=== PATIENT | male | born 1945 | race Caucasian/White ===

== ENCOUNTER 2019-03-02 14:58 | Emergency (ER) | payer OTHER ==
[~2019-03-02] VITALS: Ht 182.9 cm; Wt 113.4 kg
[~2019-03-02 14:58] MED LIST: ASPIR 8181 MG PO; ASPIRIN325 PO; AVAPRO300 MG PO; BACTRIM DS TAB1 EACH PO; BENICAR20 MG PO; BYSTOLIC10 MG PO; COLACE100 MG PO; EFFIENT10 MG PO; ENDOCET 7.5-321 EACH PO; FISH OIL 1,001000 M2 PO; GLUCOPHAGE500 MG PO; GLUCOTROL10 MG PO; HYDROCHLOROTHIA25 M1 PO; LEVAQUIN 500 M500 M2 PO; LEVOXYL50 MCG PO; LEVOXYL75 MCG PO; LIPITOR80 MG PO; LOPRESSOR25 PO; PERCOCET PO; PLAVIX 75 MG TA75 M1 PO; PRADAXA150 MG PO; VANCOMYCIN HCL1 GM IV; ZOCOR 20 MG TAB20 M1 PO
[2019-03-02] MEDS ORDERED: KEFLEX500 M1 PO (17:20)
[2019-03-02 17:33] VITALS: BP 129/60
== END 2019-03-02 17:34 | disposition home or self-care (01) ==
LOC: ER 14:58
DX: S80.12XA Contusion of left lower leg, initial encounter (principal); L03.116 Cellulitis of left lower limb; I10 Essential (primary) hypertension; I48.91 Unspecified atrial fibrillation; E78.00 Pure hypercholesterolemia, unspecified; E11.9 Type 2 diabetes mellitus without complications; E03.9 Hypothyroidism, unspecified; G47.30 Sleep apnea, unspecified; Z95.5 Presence of coronary angioplasty implant and graft; W01.198A Fall on same level from slipping, tripping and stumbling with subsequent striking against other object, initial encounter; Y93.89 Activity, other specified; Y92.89 Other specified places as the place of occurrence of the external cause; Y99.8 Other external cause status

== ENCOUNTER → 2019-07-19 | Outpatient (CLI) | payer OTHER ==
[~2019-07-19] MED LIST changes: +FLOMAX0.4 MG PO; +KEFLEX500 M1 PO; +NORCO 5-325 TA1 EAC2 PO; +TORADOL 10 MG T10 MG PO
== END ==
LOC: SJCVC 13:21
PROVIDERS: ATTEND Internal Medicine Cardiovascular Disease
DX: I48.91 Unspecified atrial fibrillation (principal); I25.10 Atherosclerotic heart disease of native coronary artery without angina pectoris; I10 Essential (primary) hypertension; I73.9 Peripheral vascular disease, unspecified; E78.00 Pure hypercholesterolemia, unspecified; E11.9 Type 2 diabetes mellitus without complications; Z79.899 Other long term (current) drug therapy

== ENCOUNTER 2019-09-13 04:16 | Emergency (ER) | payer OTHER | END 2019-09-13 07:39 | disposition home or self-care (01) | LOC: ER 04:16 | DX: N13.2 Hydronephrosis with renal and ureteral calculous obstruction (principal); I25.10 Atherosclerotic heart disease of native coronary artery without angina pectoris; E11.65 Type 2 diabetes mellitus with hyperglycemia; E11.22 Type 2 diabetes mellitus with diabetic chronic kidney disease; I12.9 Hypertensive chronic kidney disease with stage 1 through stage 4 chronic kidney disease, or unspecified chronic kidney disease; N18.9 Chronic kidney disease, unspecified; E03.9 Hypothyroidism, unspecified; E78.00 Pure hypercholesterolemia, unspecified; I48.91 Unspecified atrial fibrillation; I25.2 Old myocardial infarction; Z95.5 Presence of coronary angioplasty implant and graft; Z79.2 Long term (current) use of antibiotics; Z79.899 Other long term (current) drug therapy; Z79.82 Long term (current) use of aspirin ==

== ENCOUNTER → 2020-04-09 | Outpatient (CLI) | payer OTHER | LOC: SJCVCIMAG 08:39 | PROVIDERS: ATTEND Internal Medicine Cardiovascular Disease | DX: I08.0 Rheumatic disorders of both mitral and aortic valves (principal); I11.9 Hypertensive heart disease without heart failure; R94.31 Abnormal electrocardiogram [ECG] [EKG]; I25.10 Atherosclerotic heart disease of native coronary artery without angina pectoris; E11.9 Type 2 diabetes mellitus without complications; E78.00 Pure hypercholesterolemia, unspecified; I73.9 Peripheral vascular disease, unspecified; I77.9 Disorder of arteries and arterioles, unspecified; I48.91 Unspecified atrial fibrillation; D68.59 Other primary thrombophilia; I42.9 Cardiomyopathy, unspecified; Z86.16 Personal history of COVID-19; E78.5 Hyperlipidemia, unspecified; I25.2 Old myocardial infarction; Z98.890 Other specified postprocedural states; Z79.84 Long term (current) use of oral hypoglycemic drugs; Z79.82 Long term (current) use of aspirin; Z79.899 Other long term (current) drug therapy; Z82.49 Family history of ischemic heart disease and other diseases of the circulatory system ==

== ENCOUNTER → 2020-07-18 | Outpatient (CLI) | payer OTHER ==
[~2020-07-18] MED LIST changes: +ACETAMINOPHEN325 M1 PO; +CALTRATE-600 W1 EACH PO; +CARDIZEM CD 18180 M3 PO; +COZAAR 50 MG TA50 M1 PO; +DEMADEX20 MG PO; +FISH OIL 1,001000 M3 PO; +GLIPIZIDE XL10 MG PO; -GLUCOTROL10 MG PO; +HUMALOG100 UNIT/1 SUBQ; +HYDROCODON-ACE1 EAC7 PO; +JARDIANCE25 MG PO; -LEVOXYL75 MCG PO; +LEVOXYL88 MCG PO; +METOPROLOL SUCC50 MG PO; +PEPCID20 MG PO
== END ==
LOC: SJCVC 13:48 → SJCVCIMAG 13:48 → SJCVC 16:30
PROVIDERS: ATTEND Internal Medicine Cardiovascular Disease
DX: I48.91 Unspecified atrial fibrillation (principal); I27.20 Pulmonary hypertension, unspecified; I25.10 Atherosclerotic heart disease of native coronary artery without angina pectoris; I10 Essential (primary) hypertension; E78.00 Pure hypercholesterolemia, unspecified; E11.51 Type 2 diabetes mellitus with diabetic peripheral angiopathy without gangrene; I73.9 Peripheral vascular disease, unspecified; I65.29 Occlusion and stenosis of unspecified carotid artery; I42.9 Cardiomyopathy, unspecified; E78.5 Hyperlipidemia, unspecified; I25.2 Old myocardial infarction; Z79.82 Long term (current) use of aspirin; Z79.84 Long term (current) use of oral hypoglycemic drugs; Z79.899 Other long term (current) drug therapy; Z86.16 Personal history of COVID-19; Z82.49 Family history of ischemic heart disease and other diseases of the circulatory system

== ENCOUNTER 2020-08-04 06:51 | Inpatient (IN) | payer OTHER ==
[~2020-08-04] VITALS: Ht 182.9 cm; Wt 117.2 kg
[2020-08-04] VITALS (16 sets, daily range): BP systolic 101–142; BP diastolic 4–94
[~2020-08-04 06:51] MED LIST changes: -ACETAMINOPHEN325 M1 PO; -CALTRATE-600 W1 EACH PO; -CARDIZEM CD 18180 M3 PO; -COZAAR 50 MG TA50 M1 PO; -DEMADEX20 MG PO; -FISH OIL 1,001000 M3 PO; -HUMALOG100 UNIT/1 SUBQ; -HYDROCODON-ACE1 EAC7 PO; -JARDIANCE25 MG PO; -METOPROLOL SUCC50 MG PO; -PEPCID20 MG PO
[2020-08-04 07:25] LABS: HEMATOCRIT 47.2 % (42.0-52.0); HEMOGLOBIN 15.8 gm/dL (14.0-18.0); MCH 29.3 pg (26.0-34.0); MCHC 33.6 g/dL (28.0-37.0); MCV 87.2 fL (80.0-100.0); RBC 5.41 mil/uL (4.50-6.00); RDW 13.7 % (10.5-14.5); WBC 6.1 thou/uL (4.0-11.0)
[2020-08-04 07:34] LABS: CALCIUM 9.4 mg/dL (8.5-10.1); CREATININE 1.3 mg/dL (0.7-1.3); POTASSIUM 4.5 mmol/L (3.5-5.1)
[2020-08-04] MEDS ORDERED: FISH OIL 1,001000 M3 PO (07:40)
[2020-08-04] MEDS ORDERED: PRADAXA150 MG PO ×2 (07:41)
--- NOTE | 2020-08-04 07:49 | EKG ---
[facility] [place] [address] ELECTROCARDIOGRAM REPORT Name: LUIS ALBERTO ANNE Room #: REG [facility]#: [id number] Admission: 08/04/20 Attend Phys: Leonides Navas MD, Discharge: Date of : 47 Report #: [id number] [facility] Test Date: 2020-08-04 Test Time: 07:27:08 Pat Name: LUIS ALBERTO ANNE Department: Room: Gender: Workday Manager: SBULOW : 1945 Requested By: Leonides Navas Order Number: [id number] MD: Leo Ann Measurements Intervals [place] Rate: 66 P: MA: QRS: 37 QRSD: 86 T: 43 QT: 384 QTc: 403 Interpretive Statements Atrial fibrillation Low voltage, extremity and precordial leads Poor R wave progression Compared to ECG 09/03/2015 06:48:08 Heart rate has slowed Electronically Signed On 08-04-2020 7:49:38 CDT by Leo Ann [email or web address] <ELECTRONICALLY SIGNED> By: Leo Ann MD, [facility] 08/04/20 0749 D: [id number] 6 Leo Ann MD, FAC /EPI
[2020-08-04 11:24] LABS: ABSOLUTE NEUTROPHILS 4.5 thou/uL (1.4-8.2); BASOPHILS 0.8 % (0.0-2.0); EOSINOPHILS 1.9 % (0.0-3.0); HEMOGLOBIN 15.4 gm/dL (14.0-18.0); LYMPHOCYTES 18.8 % (24.0-44.0); MCH 29.5 pg (26.0-34.0); MCHC 33.5 g/dL (28.0-37.0); MONOCYTES 8.3 % (1.0-8.0); POLYS 70.2 % (36.0-66.0); RBC 5.22 mil/uL (4.50-6.00); RDW 13.7 % (10.5-14.5); WBC 6.5 thou/uL (4.0-11.0)
[2020-08-04 11:25] LABS: URINE BILIRUBIN NEGATIVE (Negative); URINE BLOOD NEGATIVE (Negative); URINE CLARITY CLEAR; URINE COLOR YELLOW; URINE GLUCOSE-RANDOM* 3+ (Negative); URINE KETONES TRACE (Negative); URINE LEUKOCYTES-REFLEX NEGATIVE (Negative); URINE NITRITE-REFLEX NEGATIVE (Negative); URINE PROTEIN (DIPSTICK) NEGATIVE (Negative); URINE UROBILINOGEN 0.2 E.U./dl (0.2-1.0)
[2020-08-04 11:39] LABS: APTT 29.6 Seconds (24.5-32.8); CALCIUM 8.9 mg/dL (8.5-10.1); CREATININE 1.2 mg/dL (0.7-1.3); INR 1.1; POTASSIUM 4.3 mmol/L (3.5-5.1); PROTIME 11.9 Seconds (10.5-12.1)
[2020-08-04 11:45] LABS: TOTAL BILIRUBIN 1.1 mg/dL (0.2-1.0); TOTAL PROTEIN 6.8 g/dL (6.4-8.2)
[2020-08-04 12:04] LABS: ALBUMIN 3.6 g/dL (3.4-5.0)
[2020-08-04 12:28] LABS: PLATELET COUNT 101 thou/uL (150-400)
--- NOTE | 2020-08-04 17:27 | CATHLAB ---
[facility] [place] [address] INVASIVE PROCEDURE REPORT Name: LUIS ALBERTO ANNE Room #: 216-P [facility] Gray M.RMelanie#: [id number] Admission: 08/04/20 Attend Phys: Leonides Navas MD, Discharge: Date of : 47 Report #: [id number] THIS REPORT FOR: cc: Raghav Hickman MD, Troy A. MD Mancuso, Gerald M. MD [facility] ~ APPROVED REPORT Study performed: 08/04/2020 07:33:51 Patient Details Patient Status: Out-Patient Room #: The patient is a 74 year-old male Event Personnel Leonides Navas Violent Crimes Detective, Shiva Reynaga RN RN, Kalani Scherer RT(R)() Geoffrey Epperson Roberta Monitor Procedures Performed Art Access - R femoral artery* Left Heart Cath w/or w/o Coronaries [id number] [facility] Hemostasis w/ Mynx 01757 Initial Mod Sed Same Phys/QHP Gr5y [id number] 73505 Mod Sed Same Phys/QHP Ea 122132 Procedure Narrative The Right Groin^ was infiltrated with 1% Lidocaine subcutaneous anesthesia. A PINNACLE 6FR Sheath #[id number] sheath was inserted into the RFA^. Coronary angiography was performed using coronary diagnostic catheters. The right coronary system was accessed and visualized with a JR4 catheter. The left coronary system was accessed and visualized with a JL4 catheter. The left ventricle was accessed and visualized with a PIGTAIL catheter. The patient tolerated the procedure well and there were no complications associated with the procedure. There was no hematoma. Intraoperative Conscious Sedation Fentanyl 50 mcg Versed 1 mg Fluoro Time: 5.70 minutes Dose: DAP 79423.90 cGycm2 Contrast Type and Amount: Visipaque 105 ml Hemodynamics The aortic pressure is 103/54 mmHg with a mean of 71 mmHg. The left ventricular pressure is 111/14 mmHg with a mean of mmHg. The left [facility] [address] [place] [address] INVASIVE PROCEDURE REPORT Name: DAYANALUIS ALBERTO Room #: 216-P [facility] IN M.R.#: [id number] Admission: 08/04/20 Attend Phys: Leonides Navas, Discharge: Date of : 47 Report #: [id number] ventricular end diastolic pressure is 26 mmHg. Conclusion #1. Left main with distal narrowing of 40 to 50% giving rise to an LAD and circumflex. #2 subtotal ostial LAD just off the left main prior to a previously placed stent which is preserved with minimal restenosis and then a mid vessel stenosis of 80% extensive proximal calcification is noted the distal half of the vessel fairly well-preserved. #3 circumflex OM nondominant with mild disease. Proximal calcification again noted #4 dominant right coronary with mild calcification mild disease and then a mid distal 80% eccentric lesion giving rise to PDA FLOWER which are preserved. #5 normal left jugular size with anterior apical wall leg EF 45% range. (Expect improvement with revascularization). #6 supravalvular aortogram revealing normal caliber ascending aorta with trivial aortic insufficiency. #7 selective bilateral renal angiography revealing left renal artery patent with mild disease in the right renal artery 30 to 40% ostial narrowing. Recommendations and plan: Continue aggressive risk factor modification. Patient will be admitted for revascularization. Due to extensive calcification in nature of disease best served with revascularization by bypass surgery. Pain-free upon transfer to CCU. <ELECTRONICALLY SIGNED> By: Leonides Navas MD, FACC 08/04/201726 26 26 Leonides Navas MD, FACC /INF
--- NOTE | 2020-08-04 20:02 | NUR ---
RECEIVED PT FROM DESIGN TECHNICIAN. ADMISSION COMPLETED. AT THE BEDSIDE. PT IS AXOX4, PLEASANT. DENIES PAIN. VSS, AFEBRILE, AFIB ON MONITOR. PT CARD CATH IN R GROIN, MYNX CLOSURE, C/D/I, NO HEMATOMA. PT COMPLETED BEDREST AND IS UP AD TAD. DR MICHEL CONSULTED. POC IS TO OBSERVE PT. CABG SCHEDULED 08/06/20. PT COMMUNICATED UNDERSTANDING FOR POC. LOW FALL PRECAUTIONS IN PLACE. PT IS DIABETIC; R FOOT HAS ALL TOES AMPUTATED, L FOOT HAS SMALL TOE AMPUTATED. PT HAS STEADY, BALANCED GAIT WITH NO ASSISTIVE DEVICES. NO CONCERNS AT THIS TIME.
[2020-08-04 23:06] LABS: GLYCOHEMOGLOBIN (HGB A1C) 8.1 % (4.8-5.6)
[2020-08-05 00:45] VITALS: BP 103/60
[2020-08-05 04:45] VITALS: BP 108/65
[2020-08-05 07:40] VITALS: BP 113/76
--- NOTE | 2020-08-05 07:59 | NUR ---
PATIENT CARES WERE ASSUMED AT SHIFT CHANGE. PATIENT WAS ASSESSED AND MEDS WERE PASSED. PATIENT HAD A VERY RESTFUL NIGHT. HE IS SLOTTED TO HAVE HEART SURGERY TOMORROW, ROUNDS WERE MADE AND THE BED WAS IN A LOW AND LOCKED POSITION.
[2020-08-05 11:50] VITALS: BP 127/63
--- NOTE | 2020-08-05 15:01 | HC ---
[facility] [place] [address] CONSULTATION Name: LUIS ALBERTO ANNE Room #: 216-P [facility] M..#: [id number] Admission: 08/04/20 Attend Phys: Leonides Navas MD, Discharge: Date of : 47 Report #: [id number] THIS REPORT FOR: cc: Raghav Hickman MD, Troy A. MD Forman, John M. MD ~ DOC #: [id number] Randell Quinones MD DATE OF SERVICE: 08/04/2020 We were asked by Dr. Navas to see the patient. HISTORY OF PRESENT ILLNESS: The patient is a 74-year-old with coronary artery disease. The patient presents with a history of coronary artery disease, having had LAD stent in 2010 and circumflex stent in 2014. Recently, the patient notes that he has been short of breath with activity. This occurs mostly when he walks or is on a bicycle. We note that a recent stress test was positive for ischemia and today, coronary angiogram demonstrates a high-grade proximal 99% left anterior descending stenosis with an 80% mid LAD lesion. Circumflex has more mild disease and right coronary has distal 80% stenosis. Left ventricular function is moderately reduced with an ejection fraction in 35-40% range. PAST HISTORY: Significant for diabetes mellitus and hypertension. The patient has had right transmetatarsal amputation. The patient also has had right carotid endarterectomy and right femoropopliteal bypass. We also note the patient has chronic atrial fibrillation and takes Pradaxa for this. The patient is treated for hypertension and hyperlipidemia. FAMILY HISTORY: Significant for heart attack in father and paternal grandfather. SOCIAL HISTORY: The patient is a never smoker. He quit alcohol 40 years ago. 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 ALLERGIES: None known. REVIEW OF SYSTEMS: GENERAL: No fever, no weight change. EYES: No vision change. HENT: No hearing problems. No sinus problems. RESPIRATORY: As mentioned, shortness of breath on exertion. No cough. CARDIAC: No angina, no palpitations. As mentioned, shortness of breath with exertion. GASTROINTESTINAL: No nausea, vomiting, blood in stools. [facility] [address] [place] [address] CONSULTATION Name: LUIS ALBERTO ANNE Room #: 216-P [facility]#: [id number] Admission: 08/04/20 Attend Phys: Leonides Navas MD, Discharge: Date of : 47 Report #: [id number] GENITOURINARY: No urgency, frequency, blood in urine, MUSCULOSKELETAL: Denies bone or joint pain. SKIN: Denies rash or infection. NEUROLOGIC: Denies motor or sensory dysfunction. ENDOCRINE: Denies goiter, no tremor. HEMATOLOGIC: Denies bruisability or bleeding. PHYSICAL EXAMINATION: GENERAL: The patient is lying in bed after cardiac catheterization. VITAL SIGNS: Pulse 80, atrial fibrillation; blood pressure 130/70. HEENT: No scleral icterus. No arcus. NECK: No mass, no bruit. CHEST: Clear to auscultation. HEART: Heart rhythm irregular, no murmur. ABDOMEN: Protuberant, soft. EXTREMITIES: We note right transmetatarsal amputation. There is 1+ edema in both extremities. Color is good with no cyanosis. NEUROLOGIC: No obvious motor or sensory dysfunction. MUSCULOSKELETAL: Other than the amputation, no obvious bone or joint asymmetry or deformity. SKIN: No rash or infection. PSYCHIATRIC: Shows insight into problem, oriented and appropriate. In general, the patient is an overweight mesomorph with a marlon complexion. ASSESSMENT AND PLAN: The patient has important coronary artery disease. I reviewed the findings of the arteriogram and discussed it in view of the patient's presentation. I have recommended coronary artery bypass surgery. Risks and details of surgery were discussed. Options and alternatives were reviewed. Risks include but are not limited to bleeding, infection, anesthesia risks, heart and lung problems, stroke and . The patient understands all of this and wishes to proceed. I also discussed the advisability of placing a clip on the left atrial appendage during surgery with chronic atrial fibrillation. The patient understands this and agrees. We will try to arrange surgery for Tuesday morning, 08/06/2020 and perform a preoperative testing in the interim. Thank you for the consult. MD DANIELA Henderson/NADEEM [address] [address] CONSULTATION Name: LUIS ALBERTO ANNE Room #: 216-P [facility] Gray M.R.#: [id number] Admission: 08/04/20 Attend Phys: Leonides Navas MD, Discharge: Date of : 47 Report #: [id number] <ELECTRONICALLY SIGNED> By: Randell Quinones MD 08/05/20 1501 0924 2101 Randell Quinones MD /nt
--- NOTE | 2020-08-05 15:11 | NUR ---
PT ADMITTED RELATED TO CAD, HTN, DM2, HYPERCHOLESTEROLEMIA, PERIPHERAL DSE. CM REVIEWED CHART AND SPOKE WITH CARE TEAM. CM MET WITH PT AND SPOUSE AT BEDSIDE THIS DAY. PT APPEARED TO BE A&O X4. CM ROLE INTRODUCED. PT INDICATED HE LIVES IN A HOUSE WITH HIS SPOUSE WITH NO STEPS TO ENTER AND NO STEPS INSIDE. 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 PT INDICATED NO DME. PT INDICATED HE PLANS TO RETURN HOME ONCE MEDICALLY STABLE. PT IS TO HAVE CABG TOMORROW. CM FOLLOWING REGARDING DC PLANNING.
[2020-08-05 15:35] VITALS: BP 126/76
--- NOTE | 2020-08-05 19:59 | NUR ---
PT IS SCHEDULED FOR CABG IN AM. CONSENT SIGNED AND ON CHART. SINCLAIR NOW SWABBED AND SENT TO LAB. PT HAS BEEN INSTRUCTED THAT HE IS GOING TO BE NPO AFTER MIDNIGHT. PT STATES NO QUESTIONS AT THIS TIME. REPORT GIVEN TO NIGHT RN AND PT IS AWARE HE WILL HAVE A SHOWER TONIGHT AND TOMORROW AM. PT HAS DENIED ANY CHEST PAIN ENTIRE SHIFT.
[2020-08-05 20:26] VITALS: BP 129/62
[2020-08-06] VITALS (15 sets, daily range): BP systolic 101–139; BP diastolic 42–80
--- NOTE | 2020-08-06 06:19 | NUR ---
SLEPT PART OF NOC WITH CPAP ON. UP AD TAD IN ROOM. PM AND AM SHOWER COMPLETED WITH DAVIDSON. DENIES COMPLAINTS OF PAIN THIS SHIFT. AWAITING PREOP TO COME GET HIM FOR [facility]. CONTINUE TO ASSES.
--- NOTE | 2020-08-06 06:40 | NUR ---
ON CART TO PREOP. HERE AND HAS PATIENTS CELL PHONE.
--- NOTE | 2020-08-06 07:22 | NUR ---
belongings taken to ICU.
[2020-08-06 13:25] LABS: HEMATOCRIT 34.1 % (42.0-52.0); MCH 29.5 pg (26.0-34.0); MCHC 33.4 g/dL (28.0-37.0); MCV 88.3 fL (80.0-100.0); RBC 3.86 mil/uL (4.50-6.00); RDW 13.3 % (10.5-14.5); WBC 16.7 thou/uL (4.0-11.0)
[2020-08-06 13:33] LABS: HEMOGLOBIN 11.4 gm/dL (14.0-18.0)
[2020-08-06 13:44] LABS: APTT 36.5 Seconds (24.5-32.8); PROTIME 19.8 Seconds (10.5-12.1)
[2020-08-06 13:47] LABS: INR 1.87
--- NOTE | 2020-08-06 14:05 | NUR ---
Nutrition: pt S/P CABG x 4. Consult received. RD will followup to determine education needs when out of ICU and closer to D/C.
[2020-08-06 14:29] LABS: POC BE -2 mmol/L (-2.0 to +3.0); POC CA IONIZED 4.8 mg/dL (4.5-5.3); POC GLUCOSE 159 mg/dL (70-99); POC HCO3 23.2 mmol/L (22.0-26.0); POC POTASSIUM 4.4 mmol/L (3.5-5.1); POC SODIUM 138 mmol/L (136-145); POC pCO2 37.1 mmHg (35.0-45.0); POC pH 7.404 (7.360-7.450)
[2020-08-06 14:29] LABS: POC BE -4 mmol/L (-2.0 to +3.0); POC CA IONIZED 4.8 mg/dL (4.5-5.3); POC GLUCOSE 211 mg/dL (70-99); POC HEMOGLOBIN 15.6 g/dL (14.0-18.0); POC POTASSIUM 4.9 mmol/L (3.5-5.1); POC SODIUM 138 mmol/L (136-145); POC pCO2 39.7 mmHg (35.0-45.0); POC pH 7.353 (7.360-7.450)
[2020-08-06 14:30] LABS: POC BE -5 mmol/L (-2.0 to +3.0); POC CA IONIZED 4.7 mg/dL (4.5-5.3); POC GLUCOSE 133 mg/dL (70-99); POC HCO3 20.3 mmol/L (22.0-26.0); POC HEMOGLOBIN 11.9 g/dL (14.0-18.0); POC POTASSIUM 3.8 mmol/L (3.5-5.1); POC SODIUM 142 mmol/L (136-145); POC pCO2 34.7 mmHg (35.0-45.0); POC pH 7.376 (7.360-7.450)
[2020-08-06 14:30] LABS: POC BE -4 mmol/L (-2.0 to +3.0); POC CA IONIZED 4.2 mg/dL (4.5-5.3); POC GLUCOSE 180 mg/dL (70-99); POC HCO3 20.6 mmol/L (22.0-26.0); POC HEMOGLOBIN 12.9 g/dL (14.0-18.0); POC SODIUM 137 mmol/L (136-145); POC pCO2 34.1 mmHg (35.0-45.0)
[2020-08-06 14:30] LABS: POC BE 0 mmol/L (-2.0 to +3.0); POC CA IONIZED 4.4 mg/dL (4.5-5.3); POC GLUCOSE 155 mg/dL (70-99); POC HCO3 24.5 mmol/L (22.0-26.0); POC HEMOGLOBIN 12.2 g/dL (14.0-18.0); POC SODIUM 141 mmol/L (136-145); POC pH 7.429 (7.360-7.450)
[2020-08-06 14:30] LABS: POC BE -4 mmol/L (-2.0 to +3.0); POC GLUCOSE 139 mg/dL (70-99); POC HCO3 20.9 mmol/L (22.0-26.0); POC HEMOGLOBIN 11.2 g/dL (14.0-18.0); POC POTASSIUM 3.7 mmol/L (3.5-5.1); POC SODIUM 141 mmol/L (136-145); POC pCO2 34.3 mmHg (35.0-45.0); POC pH 7.392 (7.360-7.450)
[2020-08-06 14:30] LABS: POC BE 0 mmol/L (-2.0 to +3.0); POC CA IONIZED 4.3 mg/dL (4.5-5.3); POC GLUCOSE 149 mg/dL (70-99); POC HCO3 24.1 mmol/L (22.0-26.0); POC HEMOGLOBIN 11.6 g/dL (14.0-18.0); POC POTASSIUM 4.1 mmol/L (3.5-5.1); POC SODIUM 141 mmol/L (136-145); POC pCO2 37.3 mmHg (35.0-45.0); POC pH 7.418 (7.360-7.450)
[2020-08-06 14:30] LABS: POC BE 0 mmol/L (-2.0 to +3.0); POC CA IONIZED 4.4 mg/dL (4.5-5.3); POC GLUCOSE 168 mg/dL (70-99); POC HCO3 24.7 mmol/L (22.0-26.0); POC HEMOGLOBIN 12.2 g/dL (14.0-18.0); POC POTASSIUM 4.1 mmol/L (3.5-5.1); POC SODIUM 140 mmol/L (136-145); POC pCO2 37.7 mmHg (35.0-45.0); POC pH 7.425 (7.360-7.450)
--- NOTE | 2020-08-06 14:50 | NUR ---
PATIENT TO ICU FROM OR. ALL STAFF PRESENT IN ROOM UPON PATIENTS ARRIVAL.
[2020-08-06 15:14] LABS: BE(vivo) -7.4 mmol/L (-2 to +3); PCO2 31.1 mmHg (35.0-45.0); PO2 139.6 mmHg (80.0-100.0); pH 7.355 (7.360-7.450); sO2 98.7 % (92.0-98.0)
--- NOTE | 2020-08-06 15:25 | NUR ---
1515- Dr. Quinones and Elbert here and ABThuy's reviewed with physician . Fio2 decreased to 50% per MD orders.
[2020-08-06 15:26] LABS: HEMATOCRIT 37.9 % (42.0-52.0); HEMOGLOBIN 12.5 gm/dL (14.0-18.0); MCH 29.3 pg (26.0-34.0); MCV 88.9 fL (80.0-100.0); RBC 4.27 mil/uL (4.50-6.00); RDW 13.5 % (10.5-14.5); WBC 15.4 thou/uL (4.0-11.0)
[2020-08-06 15:48] LABS: APTT 27.9 Seconds (24.5-32.8); INR 1.27; PROTIME 13.7 Seconds (10.5-12.1)
--- NOTE | 2020-08-06 15:50 | NUR ---
1550- Dr. Quinones here to check on status of patient. Patients coming back to room, nurse to give her security code and explain visiting hours.
[2020-08-06 15:56] LABS: CALCIUM 8.2 mg/dL (8.5-10.1); CREATININE 1.2 mg/dL (0.7-1.3); MAGNESIUM 2.4 mg/dL (1.8-2.4); POTASSIUM 4.4 mmol/L (3.5-5.1)
--- NOTE | 2020-08-06 16:34 | NUR ---
Pt is now in ICU s/p CABG today. Will follow along with his postop progress and await therapy recommendations for any dc planning needs. The pt is hoping to go home with outpt f/u at dc.
--- NOTE | 2020-08-06 17:42 | NUR ---
Patient progressing towards plan of care of extubation. He is awake and calm. Denies pain. Nurse to call ABG results to physician.
[2020-08-06 17:44] LABS: BE(vivo) -9.2 mmol/L (-2 to +3); HCO3 16.2 mmol/L (22.0-26.0); PCO2 33.9 mmHg (35.0-45.0); PO2 116.5 mmHg (80.0-100.0); pH 7.298 (7.360-7.450); sO2 97.9 % (92.0-98.0)
--- NOTE | 2020-08-06 17:55 | NUR ---
1755 Patient extubated per Physician orders. Will continue to monitor.
[2020-08-07] VITALS (33 sets, daily range): BP systolic 91–129; BP diastolic 40–66
[2020-08-07 04:40] LABS: HEMATOCRIT 33.9 % (42.0-52.0); HEMOGLOBIN 11.4 gm/dL (14.0-18.0); MCH 29.6 pg (26.0-34.0); MCHC 33.7 g/dL (28.0-37.0); MCV 87.9 fL (80.0-100.0); RBC 3.86 mil/uL (4.50-6.00); RDW 13.6 % (10.5-14.5)
[2020-08-07 04:52] LABS: CALCIUM 7.9 mg/dL (8.5-10.1); CREATININE 1.6 mg/dL (0.7-1.3); MAGNESIUM 2.2 mg/dL (1.8-2.4); POTASSIUM 4.2 mmol/L (3.5-5.1)
--- NOTE | 2020-08-07 07:15 | EKG ---
[place] [address] [facility] [place] [address] ELECTROCARDIOGRAM REPORT Name: LUIS ALBERTO ANNE Room #: 251-P [facility] IN M.R.#: [id number] Admission: 08/05/20 Attend Phys: Leonides Navas MD, Discharge: Date of : 46 Report #: [id number] [facility] Test Date: 2020-08-06 Test Time: 16:29:45 Pat Name: LUIS ALBERTO ANNE Department: Room: 251 Gender: M Visitor Services Assistant: MIREYA : 1945 Requested By: Gustavo Navarro Order Number: [id number] MD: Thomas Hurley Measurements Intervals [place] Rate: 78 P: 71 VA: 252 QRS: 92 QRSD: 86 T: QT: 458 QTc: 522 Interpretive Statements Sinus rhythm Prolonged VA interval Low voltage with right axis deviation Anteroseptal infarct, old Nonspecific T abnormalities, inferior leads Prolonged QT interval Compared to ECG 08/04/2020 07:27:08 First degree AV block now present Right-axis deviation now present T-wave abnormality now present Atrial fibrillation no longer present Poor R-wave progression no longer present Electronically Signed On 08-07-2020 7:15:23 CDT by Thomas Hurley [email or web address] <ELECTRONICALLY SIGNED> By: Thomas Hurley MD, [facility] 08/07/20 0715 1629 1629 Thomas Hurley MD, [facility] /EPI
--- NOTE | 2020-08-07 07:58 | EKG ---
[place] [address] [facility] [place] [address] ELECTROCARDIOGRAM REPORT Name: LUIS ALBERTO ANNE Room #: 251-P [facility] IN M.R.#: [id number] Admission: 08/05/20 Attend Phys: Leonides Navas MD, Discharge: Date of : 47 Report #: [id number] [facility] Test Date: 2020-08-07 Test Time: 07:16:08 Pat Name: LUIS ALBERTO ANNE Department: Room: 251 P Gender: M Veterinarian Epidemiologist: MIREYA : 1945 Requested By: Gustavo Navarro Order Number: [id number] MD: Leo Ann Measurements Intervals [place] Rate: 73 P: 65 NV: 219 QRS: 62 QRSD: 98 T: 38 QT: 423 QTc: 467 Interpretive Statements Sinus rhythm Borderline prolonged NV interval Low voltage Poor R wave progression Compared to ECG 08/06/2020 16:29:45 NV interval has shortened Prolonged QT interval no longer present Electronically Signed On 08-07-2020 7:57:46 CDT by Leo Ann [email or web address] <ELECTRONICALLY SIGNED> By: Leo Ann MD, [facility] 08/07/20 0757 5 5 Leo Ann MD, [facility] /EPI
[2020-08-07] MEDS ORDERED: JARDIANCE25 MG PO (10:34)
--- NOTE | 2020-08-07 13:16 | NUR ---
Chart review. s/p CABG x 4. Discussed with cardiac LANDSCAPE ARCHITECTURE PROFESSOR, no anticipated dc over the weekend. will cont following as needed for dc need. Therapy on hold.
[2020-08-08] VITALS (24 sets, daily range): BP systolic 101–136; BP diastolic 50–71
[2020-08-08 04:44] LABS: HEMOGLOBIN 11.6 gm/dL (14.0-18.0); MCH 29.7 pg (26.0-34.0); MCHC 34.2 g/dL (28.0-37.0); MCV 86.9 fL (80.0-100.0); RBC 3.92 mil/uL (4.50-6.00); RDW 13.7 % (10.5-14.5); WBC 9.3 thou/uL (4.0-11.0)
--- NOTE | 2020-08-08 05:15 | NUR ---
Patient slept on/off most of the shift. No complaints of pain except discomfort with repositioning. Patient has good strength and is able to assist in turning. Remains neuro intact. Heart rate and rhythm stable. Small 1st degree block and a BBB noted. Cardiac numbers continued to be WNL. Did call [place] for elevated SVR early in the shift. He stated to just watch the patient and leave the Dobutamine at 4 mcgs and not titrate overnight. Adequate oxygenation on 2L NC. Patient does good with coughing/deep breathing. Discussed slow intentional breathing with the patient as he gets paniced at times and feels like he cannot take a deep breath. Insulin gtt continues to be stable, checking BG every 2-3 hours. Average chest tube drainage. Adequate U/O. AM labs sent. Awaiting results. Patient is progressing towards goals. Patient did have an emesis at the beginning of shift. Zofran given q hours to prevent further N/V. See documentation on interventions for assessment details.
[2020-08-08 05:24] LABS: ALBUMIN 3.3 g/dL (3.4-5.0); CALCIUM 7.7 mg/dL (8.5-10.1); CREATININE 1.5 mg/dL (0.7-1.3); POTASSIUM 3.7 mmol/L (3.5-5.1); TOTAL BILIRUBIN 0.7 mg/dL (0.2-1.0); TOTAL PROTEIN 5.6 g/dL (6.4-8.2)
--- NOTE | 2020-08-08 13:14 | NUR ---
Assummed care of this patient at 0700 today. Patient's bed converted to chair position to allow adequate hemostatis and chest tube drainage. Dobutamine drip tappered at 0.5 mcg/hr until last hour and then decreased by 1 mcg. MAP is greater than 65 MMHG and urine output is greater than 40 ml/hr. Diet encouraged. States that he has adequate pain relief after pain meds give. Less nauseated today and anti nausea medications given as needed with relief
--- NOTE | 2020-08-08 15:27 | NUR ---
SW reviewed chart and spoke with hospitalist. Pt is POD#2 CABG x 4. No weekend discharge planned. Pt is on dobutamine gtt. Therapy services are working with pt. Pt may benefit from a 5N consult pending progress with therapy. [facility] is following to assist as needed with discharge planning.
--- NOTE | 2020-08-08 16:31 | NUR ---
PATIENT IS SLOWLY PROGRESSING. DOBUTAMINE TAPPERED OFF AT 1415, WITHIN 25 MINS CI NOTED TO BE IN THE 1.5 RANGE WITH SVR INCREASING. DOBUTAMINE RESTARTED AND CI UP TO 1.9 TO 2.0 RANGE ONCE REPOSITIONED IN THE BED. INSULIN DRIP AND FLUIDS DC'D AND DOBUTAMINE ONCE AGAIN IS BEING TAPPERED. WILL CONTINUE TO MONITOR.
--- NOTE | 2020-08-08 18:15 | NUR ---
PATIENT IS SLOWLY PROGRESSING TOWARDS OUTCOME GOALS IVF, SINGH, INSULIN AND DOBUTAMINE DC'D. MONITOR NSR. CI GREATER THAN 2 AND SVR 800'S TO 1000'S AFTER DOBUTAMINE WEANED OFF. MEAN ARTERIAL PRESSURE GREATER THAN 6 MMGH.
[2020-08-08 21:16] LABS: HEMATOCRIT 36.6 % (42.0-52.0); HEMOGLOBIN 12.2 gm/dL (14.0-18.0); MCH 29.1 pg (26.0-34.0); MCHC 33.3 g/dL (28.0-37.0); MCV 87.3 fL (80.0-100.0); RBC 4.19 mil/uL (4.50-6.00); RDW 13.7 % (10.5-14.5); WBC 11.1 thou/uL (4.0-11.0)
[2020-08-09] VITALS (24 sets, daily range): BP systolic 108–145; BP diastolic 51–78
--- NOTE | 2020-08-09 06:10 | NUR ---
Patient slept well through the night. Medicated for pain twice and nausea twice. Heart rate and rhythm stable. Blood pressure stable with MAP > 65. Adequate oxygenation on room air. Adequate urine output per urinal. Marginal chest tube drainage. No am labs ordered. Patient is progressing towards goals. See documenation on interventions for assessment details.
[2020-08-09 08:41] LABS: HEMATOCRIT 36.7 % (42.0-52.0); HEMOGLOBIN 12.4 gm/dL (14.0-18.0); MCH 29.6 pg (26.0-34.0); MCHC 33.8 g/dL (28.0-37.0); MCV 87.5 fL (80.0-100.0); RBC 4.19 mil/uL (4.50-6.00); RDW 13.4 % (10.5-14.5); WBC 10.1 thou/uL (4.0-11.0)
--- NOTE | 2020-08-09 09:45 | NUR ---
labs drawn, platelet count-77,000. pacing wire capped, pleural chest tube and mediastinal chest tube removal performed by ILIANA Terrell. pt up in chair with assistance of Edgar, physical therapist. all well tolerated. radial fuentes and non-invasive bp coordinate. pt pulling 1,000 on incentive spirometer. tolerating po, poor appetite. passing flatus. at bedside providing support. progressing.
[2020-08-09 09:49] LABS: CALCIUM 8.6 mg/dL (8.5-10.1); CREATININE 1.2 mg/dL (0.7-1.3); POTASSIUM 4.7 mmol/L (3.5-5.1)
--- NOTE | 2020-08-09 10:00 | NUR ---
when pt up to chair, left pct and left mediastinal chest tube site dripping serosanguinous blood. pressure held x 5 min. no further bleeding. ILIANA Terrell present, notified.
--- NOTE | 2020-08-09 14:20 | NUR ---
with activity L mct/L pct site restarted with dripping drainage. dressing reapplied.
--- NOTE | 2020-08-09 16:35 | NUR ---
pt rested for about 2 hrs while on his home cpap machine. Dr. Quinones present to see pt. continues to remain at bedside.
--- NOTE | 2020-08-09 17:58 | NUR ---
while consuming pm meal, pt coughed up moderate amount sputum. poor appetite. present all day providing support to pt. continuing to progress.
[2020-08-10] VITALS (16 sets, daily range): BP systolic 107–140; BP diastolic 57–84
[2020-08-10 04:21] LABS: ABSOLUTE NEUTROPHILS 5.3 thou/uL (1.4-8.2); BASOPHILS 0.5 % (0.0-2.0); EOSINOPHILS 3.2 % (0.0-3.0); HEMATOCRIT 35.5 % (42.0-52.0); HEMOGLOBIN 12.1 gm/dL (14.0-18.0); LYMPHOCYTES 13.3 % (24.0-44.0); MCH 29.7 pg (26.0-34.0); MCV 87.5 fL (80.0-100.0); MONOCYTES 12.1 % (1.0-8.0); PLATELET COUNT 94 thou/uL (150-400); POLYS 70.9 % (36.0-66.0); RBC 4.06 mil/uL (4.50-6.00); RDW 13.5 % (10.5-14.5); WBC 7.5 thou/uL (4.0-11.0)
[2020-08-10 04:38] LABS: ALBUMIN 2.8 g/dL (3.4-5.0); CALCIUM 8.5 mg/dL (8.5-10.1); CREATININE 1.1 mg/dL (0.7-1.3); POTASSIUM 4.1 mmol/L (3.5-5.1); TOTAL PROTEIN 5.7 g/dL (6.4-8.2)
--- NOTE | 2020-08-10 12:17 | NUR ---
pacing wire dc'd by ILIANA Terrell. pt spontaneously into afib 119-139. Dr. Hammer notified, cardizem bolus 10mg, then gtt 10mg/hr infusing with afib rate improved to 100-109. appropiately coughing up clear sputum. pt stating, "the coughing really tires me out". continues with poor appetite however he consumed slightly more. voiding adequate urine. present this am, updated on all cares. report given to LAZ Cook. pt up to wheelchair with one assist, then transported with groundwater monitoring technician to radiology for 2 view chest xray. following radiology, pt transferred to CCU #210 with his cpap machine and all his belongings. pt progressing.
--- NOTE | 2020-08-10 13:46 | EKG ---
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 Beveler: : 1945 Requested By: Gustavo Navarro Order Number: [id number] MD: Judd Hammer Measurements Intervals [place] Rate: 69 P: 50 GA: 225 QRS: 68 QRSD: 86 T: 24 QT: 404 QTc: 433 Interpretive Statements Sinus rhythm Prolonged GA interval Low voltage Poor R wave progression Minimal ST elevation, lateral leads Compared to ECG 08/07/2020 07:16:08 No significant changes Electronically Signed On 08-10-2020 13:46:43 CDT by Judd Hammer [email or web address] <ELECTRONICALLY SIGNED> By: Judd Hammer MD 08/10/20 1346 0 0 Judd Hammer MD /EPI
--- NOTE | 2020-08-10 13:49 | NUR ---
PT TRANSFERED FROM ER ABOUT 1300PM, PT IS A&OX4, PT IS ON ROOM AIR, PT IS CONTINUING DILTIAZEM IV DRIP AT 10MG/HR KEEP HR AT 90-100, PT'S VS ARE STABLE AT THIS TIME, PT'S STERNUM SURGICAL DRESSING IS INTACT, WOUND VAC IS WORKING WELL, PT DENIES PAIN AND SOB AT THIS TIME, PT GETS UP TO CHAIR WITH ASSIST AT THIS TIME, PT'S FAMLY STAY AT PT'S BEDSIDE .
--- NOTE | 2020-08-11 00:47 | NUR ---
ASSESSMENTS CHARTED, MEDS CHARTED GIVEN. PATIENT RESTING IN RECLINER AT START OF SHIFT. STATED HE HAD CALLED FOR CARE 4 TIMES AND HAD NO RESPONSE. PATIENT FEARFUL OF HIS SAFETY. REASSURED PATIENT THAT HE WILL BE RESPONDED TO APPROPRIATELY DURING THE NIGHT. PATIENT TOLIETED, THEN TO BED. ASSESSMENT AND MEDS GIVEN. PATIENT AT EASE IN BED. FALL PRECAUTIONS IN PLACE DURING SHIFT.
[2020-08-11 04:00] VITALS: BP 115/65
[2020-08-11 09:03] VITALS: BP 119/68
[2020-08-11 12:20] VITALS: BP 119/68
--- NOTE | 2020-08-11 15:41 | NUR ---
spoke with patient and at bedside, Discussed post acute care. 5N in process of eval. IF 5N accepting of patient, patient reports agreeable to 5N.
--- NOTE | 2020-08-11 16:46 | NUR ---
ASSESSMENT CHARTED - MEDS PER MAR - GIVEN HYDROCODONE X 2 DOSES WITH GOOD RELIEF. PT HAS SPENT MOST OF THE DAY UP IN THE CHAIR TODAY - KAYE WELL -SEEN BY CARDIAC REHAB - PT AND OCC THERAPY. WOUND VAC REMIANS INSITU AND DRESSINGS TO CHEST/ LEG AND CT -OPACER SITES REMAIN C/D/I. NO CO'S OF NAUSEA - TOLD DIET AND FLOUIDS. SEEN BY REHAB SAND BLASTER THIS AFTERNOON. INTO VISIT. ACCUCHECKS CHARTED - COVERED PER SSI. NO CO'S AT THE PRESENT TIME.
[2020-08-11 16:48] VITALS: BP 124/62
[2020-08-11 21:17] VITALS: BP 134/78
[2020-08-12 04:46] LABS: HEMATOCRIT 36.9 % (42.0-52.0); HEMOGLOBIN 12.6 gm/dL (14.0-18.0); MCH 29.7 pg (26.0-34.0); MCV 87.2 fL (80.0-100.0); RBC 4.23 mil/uL (4.50-6.00); RDW 13.5 % (10.5-14.5)
[2020-08-12 05:28] VITALS: BP 114/67
--- NOTE | 2020-08-12 05:42 | NUR ---
ASSESSMENTS CHARTED, MEDS CHARTED GIVEN. PATIENT IN RECLINER AT START OF SHIFT. TRANSFERED TO BED WITH ASSIST X 1. PATIENT REQUESTED PAIN MEDS X 1 DURING SHIFT. PATIENTS CPAP USED DURING THE NIGHT. FALL PRECAUTIONS IN PLACE DURING SHIFT.
[2020-08-12 09:02] VITALS: BP 123/80
[2020-08-12 09:38] LABS: CALCIUM 8.7 mg/dL (8.5-10.1); CREATININE 1.1 mg/dL (0.7-1.3); MAGNESIUM 1.7 mg/dL (1.8-2.4); POTASSIUM 3.5 mmol/L (3.5-5.1)
[2020-08-12 12:42] VITALS: BP 122/67
--- NOTE | 2020-08-12 13:50 | NUR ---
Nutrition: pt S/P CABG x 4 with atrial appendage clip and seen due to LOS. Pt reports improving appetite over the past 48 hrs to 50-60% of meals and up to eating most of meals today. Wound vac in place to sternal wound. BM 08/10. Pt voiced no weight changes prior to admit. BG 130-175. Pt/ voice no diet related questions as they are familiar with heart healthy guidelines. Plan rehab transfer soon. Encourage adequate protein for wound healing. Low risk.
[2020-08-12 16:00] VITALS: BP 102/64
--- NOTE | 2020-08-12 18:24 | NUR ---
ASSESSMENT CHARTED - MEDS PER SHWETHA - KAYE DIET AND FLUIDS. UP TO THE CHAIR AMBUALTED WITH PHY THERAPY AND CARDIAC REHAB - SEEN BY OCC THERAPY. GIVEN HYDROCODONE X 1 DOSE FOR CO'S OF PAIN WITH GOOD RELIEF. ACCUCHECKS CHARTED COVERED PER SSI. PT GIVEN VASOTEC 5 MGS IV THIS AM FOR ELEVATED HR POST AMBULATION - HEART RATE INTO THE 90 - LOW 100'S AFTER DOSING. PT WITH NO CO'S AT THE PRESENT TIME. APPEARS TO BE RESTING COMFORTABLY.
[2020-08-12 19:39] VITALS: BP 104/53
[2020-08-13 03:30] VITALS: BP 140/76
--- NOTE | 2020-08-13 03:48 | NUR ---
ASSESSMENTS CHARTED, MEDS CHARTED GIVEN. PATIENT STILL IN AFIB. INCREASED HEART RATE WITH ACTIVITY. PATIENT FEELS HARD STOOL IN HIS RECUTUM. REMINDING HIM NOT TO STRAIN, HR IN THE 160'S. PATIENT HOPING MIRALAX WILL HELP, NOT WILLING TO HAVE A SUPPOSITORY AT THIS TIME. PATIENT'S MOOD IS DEPRESSED. HE UNDERSTANDS THAT HE NEEDS TO GO TO REHAB BEFORE GOING HOME, BUT DOES NOT WANT TO STAY MORE DAYS. FEELING BLUE. FALL PRECAUTIONS IN PLACE DURING SHIFT. ON LASIX THERAPY. PATIENT IS SCHEDULED TO GO TO [address] [place] [address] TODAY.
--- NOTE | 2020-08-13 08:28 | NUR ---
ASSUMED PT CARE AT 0700. PT HAD A SMALL BOWEL MOVEMENT, 0800 ASSESSMENT PERFORMED, VSS. WILL CONTINUE TO MONITOR AND FOLLOW POC.
[2020-08-13 08:44] VITALS: BP 127/51
[2020-08-13 11:06] VITALS: BP 117/63
--- NOTE | 2020-08-13 12:24 | NUR ---
PT RECEIVED A TAP WATER ENEMA, ENEMA WAS SUCCESSFUL. PT HAD A LARGE BOWEL MOVEMENT FOLLOWING ENEMA AND STATES MAJOR RELIEF OF PRESSURE AND PAIN.
--- NOTE | 2020-08-13 13:34 | NUR ---
patient evaled by [facility] and they are accepting. plan dc to [facility] today.
[2020-08-13 15:10] VITALS: BP 114/58
[2020-08-13] MEDS ORDERED: ACETAMINOPHEN325 M1 PO ×2 (15:21)
[2020-08-13] MEDS ORDERED: COZAAR 50 MG TA50 M1 PO ×2 (15:21)
[2020-08-13] MEDS ORDERED: HUMALOG100 UNIT/1 SUBQ ×2 (15:21)
[2020-08-13] MEDS ORDERED: HYDROCODON-ACE1 EAC7 PO ×2 (15:21)
[2020-08-13] MEDS ORDERED: CALTRATE-600 W1 EACH PO ×2 (15:21)
[2020-08-13] MEDS ORDERED: DEMADEX20 MG PO ×2 (15:21)
[2020-08-13] MEDS ORDERED: PEPCID20 MG PO ×2 (15:21)
[2020-08-13] MEDS ORDERED: METOPROLOL SUCC50 MG PO ×2 (15:21)
[2020-08-13] MEDS ORDERED: CARDIZEM CD 18180 M3 PO ×2 (15:21)
--- NOTE | 2020-08-13 17:01 | NUR ---
GAVE REPORT TO LAZ PETIT ON [facility]. PT PREPRAING FOR TRANSFER.
--- NOTE | 2020-08-14 12:55 | O ---
[facility] [place] [address] OPERATIVE REPORT Name: LUIS ALBERTO ANNE Room #: 210-P [facility] IN M.R.#: [id number] Admission: 08/05/20 Attend Phys: Leonides Navas MD, Discharge: 08/13/20 Date of : 47 Report #: [id number] THIS REPORT FOR: cc: Raghav Hickman MD, Troy A. MD Forman, John M. MD ~ DOC #: [id number] Randell Quinones MD DATE OF SERVICE: 08/06/2020 PREOPERATIVE DIAGNOSES: Coronary artery disease, chronic atrial fibrillation. POSTOPERATIVE DIAGNOSES: Coronary artery disease, chronic atrial fibrillation. OPERATIONS: Coronary artery bypass x 4 including left internal mammary artery to left anterior descending artery, saphenous vein to diagonal and marginal, saphenous vein to right coronary artery and left atrial clipping and endoscopic harvest, left greater saphenous vein. SURGEON: Randell Quinones MD. DESIGN DRAFTER CHIEF: ILIANA Woods. ANESTHESIA: General. INDICATION: The patient is a 74-year-old with coronary artery disease and chronic atrial fibrillation. The patient had recent cardiac catheterization that showed high-grade proximal left anterior descending stenosis and also mid portion lesion. There was 80% to 90% right coronary stenosis and more mild disease in the circumflex marginal. Left ventricular function is reduced in the 35% to 40% range. FINDINGS AND TECHNIQUE: After general anesthesia was established, saphenous vein was harvested using an endoscopic approach and prepared for use as a conduit. Exposure was obtained through median sternotomy. Left internal mammary artery was harvested from chest wall. Pericardial well was made. Cannulation sutures were placed. Heparin was given. Aorta was cannulated. Right atrium was cannulated. Cardioplegia needle was positioned in the aortic root. Retrograde cardioplegic catheter was placed in the coronary sinus. Cardiopulmonary bypass was established. The aorta was cross clamped. Antegrade and retrograde cardioplegia were given. Ice was poured in the pericardial well. The heart was stopped. During electromechanical arrest, the distal anastomoses were performed. An [facility] [address] [place] [address] OPERATIVE REPORT Name: DAYANA,LUIS ALBERTO Anat Room #: 210-P [facility] IN M.R.#: [id number] Admission: 08/05/20 Attend Phys: Leonides Navas MD, Discharge: 08/13/20 Date of : 47 Report #: [id number] end-to-side anastomosis was made between vein and the distal right coronary artery. Cold cardioplegia was given. Separate segment of vein was sewn in end-to-side fashion to the distal marginal artery. Cold cardioplegia was given. The same segment of vein was sewn in end-to-side fashion to the diagonal artery. Cold cardioplegia was given. Left internal mammary artery was sewn in end-to-side fashion to the left anterior descending artery. Patency of this vessel was checked with the temperature technique and the Doppler. It should be mentioned that prior to completing the distal anastomoses, a left atrial clip was applied. The AtriClip ruler was used to measure the appendage and a 44 mm clip was applied and once it was in good position, the clip was deployed. After the distal anastomoses were performed, 2 proximal anastomoses were constructed. When these were complete, warm retrograde cardioplegia was given followed by warm continuous blood through the coronary sinus. When this infusion was complete, the crossclamp was removed. De-airing maneuvers were performed. The anastomoses were inspected and found to be satisfactory. As the patient warmed, nice cardiac activity resumed, chest tubes and pacing wires were placed. A marker was placed around the proximal anastomoses. When the patient was warm, he was weaned from cardiopulmonary bypass. Venous cannula was removed. Protamine was given, the aortic cannula was removed. Flows were measured in the bypass grafts. When hemostasis was satisfactory, chest was irrigated with antibiotic solution and closed in the usual fashion. The patient was taken to the Intensive Care Unit in good condition having tolerated the procedure well. All counts were reported as correct. Randell Quinones MD JF/NIT <ELECTRONICALLY SIGNED> By: Randell Quinones MD 08/14/20 [id number] Randell Quinones MD /nt
== END 2020-08-13 17:46 | DRG 233 ==
LOC: CATH 06:51 → 2N 11:10 → CATH 12:35 → 2N 08-05 09:49 → ICU 08-06 15:22 → 2N 08-10 12:48
PROVIDERS: Hospitalist; Nurse Practitioner; Physician Assistant; Surgery Vascular Surgery; ADMIT Internal Medicine Cardiovascular Disease; ATTEND Internal Medicine Cardiovascular Disease
PROC: B211YZZ Fluoroscopy of Multiple Coronary Arteries using Other Contrast (ICD-10-PCS; principal; 2020-08-04)
PROC: B410YZZ Fluoroscopy of Abdominal Aorta using Other Contrast (ICD-10-PCS; principal; 2020-08-04)
PROC: B418YZZ Fluoroscopy of Bilateral Renal Arteries using Other Contrast (ICD-10-PCS; principal; 2020-08-04)
PROC: 4A023N7 Measurement of Cardiac Sampling and Pressure, Left Heart, Percutaneous Approach (ICD-10-PCS; principal; 2020-08-04)
PROC: 06BQ4ZZ Excision of Left Saphenous Vein, Percutaneous Endoscopic Approach (ICD-10-PCS; 2020-08-06)
PROC: 5A1221Z Performance of Cardiac Output, Continuous (ICD-10-PCS; 2020-08-06)
PROC: 30233K1 Transfusion of Nonautologous Frozen Plasma into Peripheral Vein, Percutaneous Approach (ICD-10-PCS; 2020-08-06)
PROC: 02100Z9 Bypass Coronary Artery, One Artery from Left Internal Mammary, Open Approach (ICD-10-PCS; 2020-08-06)
PROC: 05HY33Z Insertion of Infusion Device into Upper Vein, Percutaneous Approach (ICD-10-PCS; 2020-08-06)
PROC: 02L70CK Occlusion of Left Atrial Appendage with Extraluminal Device, Open Approach (ICD-10-PCS; 2020-08-06)
PROC: 021209W Bypass Coronary Artery, Three Arteries from Aorta with Autologous Venous Tissue, Open Approach (ICD-10-PCS; 2020-08-06)
PROC: 30233R1 Transfusion of Nonautologous Platelets into Peripheral Vein, Percutaneous Approach (ICD-10-PCS; 2020-08-06)
PROC: 5A09457 Assistance with Respiratory Ventilation, 24-96 Consecutive Hours, Continuous Positive Airway Pressure (ICD-10-PCS; 2020-08-11)
DX: I25.10 Atherosclerotic heart disease of native coronary artery without angina pectoris (principal); I50.33 Acute on chronic diastolic (congestive) heart failure; I13.0 Hypertensive heart and chronic kidney disease with heart failure and stage 1 through stage 4 chronic kidney disease, or unspecified chronic kidney disease; I48.21 Permanent atrial fibrillation; N17.9 Acute kidney failure, unspecified; T82.855A Stenosis of coronary artery stent, initial encounter; I65.29 Occlusion and stenosis of unspecified carotid artery; Z79.01 Long term (current) use of anticoagulants; Y83.8 Other surgical procedures as the cause of abnormal reaction of the patient, or of later complication, without mention of misadventure at the time of the procedure; E78.5 Hyperlipidemia, unspecified; I42.9 Cardiomyopathy, unspecified; E11.51 Type 2 diabetes mellitus with diabetic peripheral angiopathy without gangrene; E78.00 Pure hypercholesterolemia, unspecified; E03.9 Hypothyroidism, unspecified; N18.9 Chronic kidney disease, unspecified; I95.9 Hypotension, unspecified; D69.6 Thrombocytopenia, unspecified; I65.23 Occlusion and stenosis of bilateral carotid arteries; K59.00 Constipation, unspecified; R53.81 Other malaise; E66.01 Morbid (severe) obesity due to excess calories; Z20.822 Contact with and (suspected) exposure to COVID-19; E11.22 Type 2 diabetes mellitus with diabetic chronic kidney disease; Y92.89 Other specified places as the place of occurrence of the external cause; Z89.611 Acquired absence of right leg above knee; Z82.49 Family history of ischemic heart disease and other diseases of the circulatory system; Z95.5 Presence of coronary angioplasty implant and graft; I25.2 Old myocardial infarction; Z68.35 Body mass index [BMI] 35.0-35.9, adult; Z79.82 Long term (current) use of aspirin; Z79.899 Other long term (current) drug therapy
CPT/HCPCS: 10078; 10081; 10797; 47000; 47001; 47002; 47297; 48889; 50011; 50249; 50643; 50668; 50953; 51301; 52259; 52287; 53327; 53358; 54118; 56455; 56524; 56525; 56526; 56527; 56528; 56531; 56534; 56668; 56719; 56760; 56898; 57093; 57102; 57167; 58368; 58369; 62110; 62950; 65020; 65090; 65120; 65135; 83006

== ENCOUNTER 2020-08-12 14:16 | Inpatient (IN) | payer OTHER ==
[~2020-08-12] VITALS: Ht 182.9 cm; Wt 111.9 kg
[~2020-08-12 14:16] MED LIST changes: +FISH OIL 1,001000 M3 PO; +JARDIANCE25 MG PO
[2020-08-13] MEDS ORDERED: PEPCID20 MG PO ×2 (15:21)
[2020-08-13] MEDS ORDERED: CARDIZEM CD 18180 M3 PO ×2 (15:21)
[2020-08-13] MEDS ORDERED: COZAAR 50 MG TA50 M1 PO ×2 (15:21)
[2020-08-13] MEDS ORDERED: CALTRATE-600 W1 EACH PO ×2 (15:21)
[2020-08-13] MEDS ORDERED: DEMADEX20 MG PO ×2 (15:21)
[2020-08-13] MEDS ORDERED: METOPROLOL SUCC50 MG PO ×2 (15:21)
[2020-08-13] MEDS ORDERED: HYDROCODON-ACE1 EAC7 PO ×2 (15:21)
[2020-08-13] MEDS ORDERED: ACETAMINOPHEN325 M1 PO ×2 (15:21)
[2020-08-13] MEDS ORDERED: HUMALOG100 UNIT/1 SUBQ ×2 (15:21)
[2020-08-13 17:35] VITALS: BP 132/76
--- NOTE | 2020-08-13 17:35 | NUR ---
PT ARRIVED VIA BED TO ROOM. PT ACCOMPANIED WITH ACOSTA. PT HAS COLD WASH RAG ON HIS FOREHEAD FROM THE MOVE UP TO ROOM. THIS PECAN SHELLER TURNED ON THE FAN IN THE ROOM FOR HIM. PT REFUSED TO EAT DINNER WHEN HE ARRIVED TO FLOOR. PT DID HAVE LARGE BM PRIOR TO COMING UP TO REHAB. PT CAME TO HOSPITAL FOR SURGERY, PT HAD CABG X4 AND HAS STERNAL WOUND VAC THAT IS RUNNING. PT HAS DRESSING TO LEFT SIDE OF CHEST FROM PREVIOUS CHEST TUBE, PT HAS DRESSING TO LEFT LEG ALSO FROM SURGERY. PT HAS AMPUTATION OF ALL RT TOES ON FOOT AND LEFT FOOT THE 5TH TOE FROM ARTERIAL INSUFF. PT LUNGS CLEAR AND ON ROOM AIR. PT USED URINAL AT BEDSIDE WITH CLEAR YELLOW URINE. PT IS NWB TO UPPER EXT AND STERNAL PRECAUTIONS. PT DRINKS THIN LIQUIDS WITHOUT ANY ISSUES. PT HAS CPAP AT HS.
--- NOTE | 2020-08-13 18:15 | NUR ---
ADM TYLENOL 325MG 2 TABS FOR PAIN TO CHEST OF 3 ON 1-10 TO STERNUM. PT STATED PAIN IS THROBBING AND ACHE, HE STATED HE DIDN'T WANT TO TAKE NARCOTICS DUE TO THE CONSTIPATION.
--- NOTE | 2020-08-14 03:32 | NUR ---
assumed care approx 1900 evening 08/13. pt alert and oriented x4, appropriate and cooperative. dressing to chest intact with wound vac in place. pt up to bathroom with walker to have bm before falling asleep. pt took hs meds with water tolerating well. pt appears to be sleeping soundly. bed alarm on and call light in reach. will continue to monitor.
[2020-08-14 05:08] LABS: MCH 29.7 pg (26.0-34.0); MCHC 34.4 g/dL (28.0-37.0); MCV 86.3 fL (80.0-100.0); RBC 4.05 mil/uL (4.50-6.00); RDW 13.3 % (10.5-14.5); WBC 7.7 thou/uL (4.0-11.0)
[2020-08-14 05:46] LABS: CALCIUM 8.7 mg/dL (8.5-10.1); CREATININE 1.2 mg/dL (0.7-1.3); POTASSIUM 3.2 mmol/L (3.5-5.1)
--- NOTE | 2020-08-14 07:04 | NUR ---
Chart review. Postop CABG. Unable to visit with patient related to he is still resting with eyes closed. Noted prior to hospital, he lives at home with his , independent with ADLS, No steps into the house or inside that he must do. No DME, hh or rehab in the past. PCP Dr Raghav Hickman. Will cont.. following as needed for dc needs
[2020-08-14 07:15] VITALS: BP 122/75
--- NOTE | 2020-08-14 08:16 | NUR ---
PT LYING IN BED AND NEEDING TO GET PULLED UP HIGHER. PT STATED HE HAD VOMITING AFTER SURGERY AND CAN FEEL A CLICKING TO TOP OF STERNUM. PT DENIES FEELING WITH COUGH. PT HAS DRY COUGH AND PT STATED USUALLY HE HAS AT BEDTIME. PT STATED HS HAS PAIN TO STERNUM OF 3 ON 1-10 SCALE. ADM TYLENOL 325MG 2 TABS PO FOR PAIN. PT USES URINAL AT BEDSIDE. PT LUNGS CLEAR. DRESSING INTACT TO STERNUM WITH WOUND VAC, NO DRAINAGE NOTED IN CANISTER. PT HAS DRESSING TO LEFT UPPER THIGH THAT IS NOT INTACT. PLACED NEW FOAM DRESSING TO UPPER THIGH. AREA IS SEALED AND NO DRAINAGE NOTED. PT ON ROOM AIR. LARGE BM YESTERDAY.
--- NOTE | 2020-08-14 12:19 | NUR ---
PT WORKING WITH THERAPY AND PULSE IS 90-154 WALKING, SITTING IS 90-130, AND WITH BED MOBILITY IS 90-120. WILL NOTIFIY JAVI GODINEZ OF PULSE RATE.
--- NOTE | 2020-08-14 12:28 | NUR ---
NOTIFIED JAVI GODINEZ. SHE STATED TO CALL CARDIOLOGY. PAGING AT THIS TIME SERVICE, NO ANSWER.
--- NOTE | 2020-08-14 12:31 | NUR ---
PAGE SENT OUT TO CARDIOLOGY.
--- NOTE | 2020-08-14 13:18 | NUR ---
Nutrition: pt admitted to rehab post CABG. Wound vac in place. Appetite improving past several days post surgery to 50-100%. brought in food today for pt and both voice understanding on how to order meals if desired. Current weights up > 10# from usual. On SSI, metformin, torsemide, calcium/vitamin D. A1C 8.1. BG controlled. No education needs voiced on either heart healthy or DM diet. Education needs were addressed also on acute. Low nutrition risk.
--- NOTE | 2020-08-14 14:13 | NUR ---
PT FINISHED WITH THERAPY AND PULSE IN THE 80'S. ADM TYLENOL 325MG 2 TABS PO FOR PAIN TO STERNUM OF 3 ON 1-10 SCALE.
--- NOTE | 2020-08-14 15:30 | NUR ---
PT WAS UP TO BATHROOM AND TRAP SETTER NOTICED BOTTOM WAS PINK. KAREN PAINTER MIRROR TOOK PIC OF BUTTOCKS. Z-GUARD APPLIED TO BUTTOCKS. PT WALKED BACK TO CHAIR WITH WALKER.
--- NOTE | 2020-08-14 17:35 | NUR ---
ADM KDUR 20MEQ 2 TABS X1 WITH DINNER. PT SITTING IN CHAIR USING INCENTIVE SPIROMETER, PT BROUGHT JARDIANCE IN STRIP CONTAINER, STATED TO FAMILY TO BRING ACTUAL BOTTLE OF MED.
[2020-08-14 19:29] LABS: FOLIC ACID 35.5 ng/mL (8.6-58.9)
[2020-08-14 19:46] VITALS: BP 120/51
--- NOTE | 2020-08-15 04:49 | NUR ---
ASSUMED CARE AT 1900 OF 08/14. PATIENT IS A&OX4. DENIES PAIN OR SOB. STERNAL WOUND VAC DRESSING IN PLACE AND RUNNING. LEFT LEG INCISION OPEN TO AIR. NO S/S OF INFECTION NOTED. PATIENT USES URINAL AT BEDSIDE. MEDICATIONS ADMNISTERED ORDERED. CONTINUES ON STERENAL PRECAUTIONS, NEEDS A REMINDER TO USE STERNAL PILLOW WHEN COUGHING. NO COCERNS AT THIS TIME, WILL CONTINUE TO MONITOR.
[2020-08-15 07:47] VITALS: BP 118/53
--- NOTE | 2020-08-15 10:28 | NUR ---
ASSUMED CARE AT 0700. PATIENT IS ALERT AND ORIENTED X4. PATIENT GILL'S, SPORTS OFFICIAL ARE EQUAL. LUNGS ARE DEMINISHED WITH OCCASIONAL COUGH. PATIENT HAS WOUND VAC TO MID CHEST AREA. ABD IS SOFT AND ROUNDED. PATIENT IS VOIDING ATUL COLORED URINE. PATIENT IS UP WITH ASSIST OF 1 STAFF WITH GAIT BELT AND WALKER. FALL AND SAFETY PROTOCOLS IN PLACE. DENIES PAIN AT THIS TIME. CONTINUES TO PROGRESS SLOWLY TOWARDS D/C GOALS. PATIENT USES HEART PILLOW TO DECREASE PAIN R/T HIS COUGH. SERVICES TECH NOTIFIED OF COUGH. PATIENT HAS AMPUTATED TOES ON THE RIGHT AND PINKIE ON THE LEFT. WILL CONTINUE TO MONITER.
--- NOTE | 2020-08-15 13:39 | NUR ---
Chart review. Cont. dcp as needed
--- NOTE | 2020-08-15 13:43 | NUR ---
WOUND CARE F/U; THE PATIENT HAS A VAC IN USE CURRENTLY TO THE STERNUM. THE VAC IS FUNCTIONING APPROPRIATLY AT THE CORRECT PRESSURE WITH NO ALARMS. NO DRAINAGE SEEN. RECOMMENDATIONS; NONE AT THIS TIME.
[2020-08-15 20:32] VITALS: BP 127/76
--- NOTE | 2020-08-16 02:06 | NUR ---
UP TO TOILET AT HS WITH GAIT BELT AND MIN ASSIST TO STAND DUE TO STERNAL PRECAUTIONS. STAFF HANDLED WOUND VAC WHILE PATIENT WALKED STEADY. BRUSHED TEETH WHILE STANDING AT MIRROR. VOID AND BM ATTEMPT/PASSING FLATUS ON TOILET. USING INCENTIVE SPIROMETER TO 1500. USING ONLY TYLENOL FOR PAIN AT HS USING HOME CPAP USE, C/O TROUBLE FALLING ASLEEP WITH IT ON UNTIL A LITTLE PAST MIDNIGHT SWALLOWS PILLS WHOLE WITH WATER, USING URINAL
[2020-08-16 08:00] VITALS: BP 118/68
--- NOTE | 2020-08-16 09:01 | NUR ---
ASSUMED CARE AT 0700. PATIENT IS ALERT AND ORIENTED X4. PATIENT GILL'S, INVENTORY ASSOCIATE AND DRIVER ARE EQUAL. LUNGS ARE DEMINISHED IN THE LEFT BASE. ENCOURAGED I.S. MUCH POSSIBLE. ABD IS SOFT WITH BSX4. UP TO THE BATHROOM WITH ASSIST OF 1 STAFF AND GAIT BELT. WOUND VAC INTACT TO MID CHEST AREA. NO DRAINAGE NOTED. PATIENT VOIDING ATUL COLORED URINE. PATIENT HAD BM THIS A.M. FALL AND SAFETY PROTOCOLS IN PLACE. DENIES PAIN AT THIS TIME. CONTINUES TO PROGRESS TOWARDS D/C GOALS. WILL CONTINUE TO MONITER.
--- NOTE | 2020-08-16 17:20 | NUR ---
PT DIDN'T WANT TO EAT ANY DINNER THIS EVENING, HIS BROUGHT HIM SOMETHING TO EAT. PT HAS CPAP ON AND READY TO GO TO BED. PT WANTING SLEEPING MED EARLY.
[2020-08-16 19:44] VITALS: BP 117/55
--- NOTE | 2020-08-17 00:09 | NUR ---
PT ALERT AND ORIENTED X 4. AMB TO BR WITH WALKER AND ASSIST X 1. WOUND VAC INTACT TO CHEST. CPAP ON DURING THE NIGHT. PT DENIES PAIN OR DISCOMFORT. BED ALARM ON FOR SAFETY. PT APPEARS TO BE SLEEPING ON HOURLY ROUNDS.
[2020-08-17 07:15] VITALS: BP 145/76
--- NOTE | 2020-08-17 10:34 | NUR ---
ASSUMED CARE AT 0700. PATIENT IS ALERT AND ORIENTEDX4. PATIENT GLEN'S, HAIRPIECE STYLIST ARE EQUAL. LUNGS ARE DEMINISHED ON THE LEFT. PATIENT HAS WOUND VAC TO HIS MID CHEST AREA WITHOUT ANY DRAINAGE. LEFT GROIN DRESSING IS DRY AND INTACT. LEFT LEG INCISION CONTINUES TO HEAL. PATIENT IS UP IN THE CHAIR FOR MEALS. PATIENT IS VOIDING ATUL COLORED URINE. UP TO THE BR TO HAVE BM TODAY. PATIENT IS ASSIST OF 1 STAFF WITH GAIT BELT AND WALKER. FALL AND SAFETY PROTOCOLS IN PLACE. DENIES PAIN AT THIS TIME. CONTINUES TO PROGRESS TOWARDS D/C GOALS. WILL CONTINUE TO MONITER.
[2020-08-17 20:05] VITALS: BP 103/53
--- NOTE | 2020-08-18 03:42 | NUR ---
WOUND VAC INTACT AND CARRIED BY STAFF DURING FORAY TO BATHROOM TO SIT ON TOILET AND THEN TO BRUSH TEETH. SOA AND UNCOMFORTABLE AFTER GETTING BACK TO BED, APPRECIATED FAN ON LOW AND DIRECTLY AT HIM FOR 20 MINUTES, BLOOD GLUCOSE = 150. USING I.S. TO 1500 AND STAYING IN THE HABIT OF USING IT. CPAP ON BEFORE MIDNIGHT AND USING URINAL NOW FOR 400 CC ATUL URINE. SCDs ON BILATERALLY, LEG EDEMA BILATERALLY.
[2020-08-18 07:48] VITALS: BP 121/68
--- NOTE | 2020-08-18 11:30 | NUR ---
ASSUMED CARE AT 0700. ALERT AND ORIENTATED X 4. DENIES ANY PAIN. WOUND VAC TO MIDLINE CHEST INTACT WITH PROVENA DRESSING AND NO DRAINAGE. L GROIN SITE INTACT, HARVEST SITE INCISION INTACT WITH NO INFLAMMATION SEEN. PT ENC TO WORK ON IS AND ABLE TO GO UP TO 1500ML. DENIES ANY SHORT OF AIR. PT AWARE OF STERNAL PRECAUTIONS. DENIES ANY PRODUCTIVE COUGH. PARTICIPATING WITH THERAPY AND PROGRESSING TOWARDS GOAL. APPETITE FAIR, LAST BM 08/17. DIURESING ADEQUATELY.
[2020-08-18 19:35] VITALS: BP 96/53
--- NOTE | 2020-08-19 01:37 | NUR ---
HS GLUCOSE =147. UP TO TOILET FOR BM ATTEMPT, DECLINED PRUNE JUICE, DECIDING TO POSTPONE WORRIES UNTIL AFTER BREAKFAST. WOUND VAC AT 125, CPAP ON AT HS, SCDs ON. PLAN DAILY WEIGHT WITH STANDING SCALE AT 6 OR 7 THIS MORNING.
[2020-08-19 05:57] LABS: ABSOLUTE NEUTROPHILS 4.6 thou/uL (1.4-8.2); BASOPHILS 0.7 % (0.0-2.0); EOSINOPHILS 2.2 % (0.0-3.0); HEMATOCRIT 34.2 % (42.0-52.0); HEMOGLOBIN 11.6 gm/dL (14.0-18.0); LYMPHOCYTES 19.5 % (24.0-44.0); MCH 29.4 pg (26.0-34.0); MCV 86.2 fL (80.0-100.0); MONOCYTES 8.2 % (1.0-8.0); PLATELET COUNT 165 thou/uL (150-400); POLYS 69.4 % (36.0-66.0); RBC 3.96 mil/uL (4.50-6.00); RDW 14.1 % (10.5-14.5); WBC 6.6 thou/uL (4.0-11.0)
[2020-08-19 06:01] LABS: CALCIUM 8.3 mg/dL (8.5-10.1); CREATININE 1.4 mg/dL (0.7-1.3); MAGNESIUM 1.5 mg/dL (1.8-2.4); POTASSIUM 3.2 mmol/L (3.5-5.1)
[2020-08-19 07:16] VITALS: BP 118/74
--- NOTE | 2020-08-19 13:10 | NUR ---
Team meeting, dc 24th with [facility] and outpt cardiac rehab. BPCI
--- NOTE | 2020-08-19 15:24 | NUR ---
ASSUMED CARE AT 0700. ALERT AND ORIENTATED X 4. DENIES ANY PAIN. WOUND VAC PROVENA DRESSING TO MID CHEST WITH NO DRAINAGE. L GROIN DRESSING INTACT. HARVESTED VEIN SITE WITH NO INFLAMMATION NOTED. PT ENC TO WORK ON IS AND ABLE TO GO UP TO 2000ML. DENIES ANY PROD COUGHING. DIURESING ADEQ. FLUID RESTRICTION MAINTAINED. PARTICIPATED WITH THERAPY AND PROGRESSING TOWARDS GOAL. LISA WITH CTS SAW PT AND WILL REMOVE MID CHEST DRESSING TOMORROW. PLAN FOR DC ON 08/21.
[2020-08-19 19:30] VITALS: BP 96/60
--- NOTE | 2020-08-19 23:29 | NUR ---
assumed care approx 1900 evening 08/19. pt alert and oriented x4, appropriate and cooperative. wound vac dressing in place to chest c/d/i. pt up to bathroom to void at hs with walker and 1 assist. pt voids per urinal at night. cpap on at present. pt appears to be sleeping soundly. bed alarm on and call light in reach.
[2020-08-20 08:00] VITALS: BP 115/67
--- NOTE | 2020-08-20 08:06 | NUR ---
ASSUMED CARE AT 0700. PATIENT IS ALERT AND ORIENTEDX4. PATIENT GILL'S, REPLANTING MACHINE CREW ARE EQUAL. PATIENT HAS WOUND VAC TO MID CHEST AREA. DRESSING IN GROIN AREA DRY AND INTACT. LUNGS ARE CLEAR AND DEMINISHED ON THE LEFT. ENCOURAGED I.S. ABD IS SOFT WITH BSX4. UP WITH ASSIST OF 1 STAFF WITH GAIT BELT AND WALKER. FALL AND SAFETY PROTOCOLS IN PLACE. DENIES PAIN AT THIS TIME. CONTINUES TO PROGRESS TOWARDS D/C GOALS. WILL CONTINUE TO MONITER.
[2020-08-20 19:25] VITALS: BP 99/48
[2020-08-21 07:15] VITALS: BP 105/67
--- NOTE | 2020-08-21 09:30 | NUR ---
ASSUMED CARE AT 0700. PATIENT IS ALERT AND ORIENTEDX4. PATIENT GILL'S, COPY READER ARE EQUAL. LUNGS ARE CLEAR AND DEMINISHED ON THE LEFT. MIDCHEST INCISION HAS STERI-STRIPS INTACT. PATIENT HAS BANDAIDS ON LOWER ABD. ABD IS SOFT WITH BSX4. PATIENT IS MOD/I IN ROOM. PATIENT IS VOIDING ATUL COLORED URINE. UP IN CHAIR FOR BREAKFAST. FALL AND SAFETY PROTOCOLS IN PLACE. DENIES PAIN AT THIS TIME. CONTINUES TO PROGRESS TOWARD D/C GOALS. WILL CONTINUE TO MONITER. PLAN D/C LATER TODAY.
[2020-08-21 09:41] VITALS: BP 105/67
--- NOTE | 2020-08-21 09:45 | NUR ---
Cont with dcp home today with outpt cardiac rehab at [facility], # [phone].
[2020-08-21] MEDS ORDERED: METOPROLOL SUCC50 MG PO ×4 (09:50→10:17)
[2020-08-21] MEDS ORDERED: CALTRATE-600 W1 EACH PO ×2 (09:50)
[2020-08-21] MEDS ORDERED: DEMADEX20 MG PO ×4 (09:50→10:17)
[2020-08-21] MEDS ORDERED: CARDIZEM CD 18180 M3 PO ×4 (09:50→10:17)
[2020-08-21] MEDS ORDERED: COZAAR 50 MG TA50 M1 PO ×2 (09:50)
[2020-08-21] MEDS ORDERED: BYSTOLIC10 MG PO ×2 (09:52)
[2020-08-21] MEDS ORDERED: IRBESARTAN300 MG PO ×2 (09:53)
--- NOTE | 2020-08-21 09:56 | NUR ---
Follow up: Pt voices no nutritional concerns and declines any nutritional education d/t has had ed in the past r/t heart healthy and DM diet. Pt reports d/c today. Continues low nutrition risk.
[2020-08-21] MEDS ORDERED: IRBESARTAN150 MG PO ×2 (10:17)
[2020-08-21 10:39] VITALS: BP 105/67
[2020-08-21 10:41] VITALS: BP 105/67
--- NOTE | 2020-08-21 11:26 | NUR ---
PATIENT GIVEN D/C INSTRUCTIONS AND SCRIPTS. H&P, D/C FERMÍN FAXED TO DR. DELGADO. PATIENT LEFT UNIT IN GOOD CONDITION. PATIENT WAS INDEPENDENT WITH TRANSFER FROM W/C TO CAR.
--- NOTE | 2020-08-25 12:35 | H ---
[facility] [place] [address] HISTORY AND PHYSICAL Name: LUIS ALBERTO ANNE Room #: 516-1 [facility] IN M.R.#: [id number] Admission: 08/13/20 Attend Phys: Paxton Leger MD Discharge: 08/21/20 Date of : 47 Report #: [id number] THIS REPORT FOR: cc: Raghav Hickman MD, Troy A. MD Smithson, David G. MD ~ DOC #: [id number] aPxton Leger MD HISTORY OF PRESENT ILLNESS: The patient is a 74-year-old white male who was originally admitted to [facility] on 08/05/2020 with multivessel coronary artery disease. He underwent coronary artery bypass grafting on 08/06/2020. This is CABG x4. His course was complicated by acute renal insufficiency, hypertension, thrombocytopenia. He does have diabetes mellitus type 2 with elevated A1c. He is quite debilitated. He has an old right transmetatarsal amputation. He has now been admitted for acute in-hospital inpatient rehabilitation. PAST MEDICAL HISTORY: Incudes diabetes mellitus, non-insulin dependent, hypertension, elevated cholesterol, atrial fibrillation, carotid artery disease with prior stenting LAD in 2010, UT in 2010, history of exogenous obesity with obstructive sleep apnea, on CPAP. PAST SURGICAL HISTORY: Right carotid endarterectomy. MEDICATIONS: Please see the full medication listing. ALLERGIES: No known drug allergies. SOCIAL HISTORY: Lives in a house with . No stairs. He is driving in the community. REVIEW OF SYSTEMS: No current complaints of chest pain, shortness of breath or abdominal discomfort. PHYSICAL EXAMINATION: GENERAL: The patient is a 74-year-old male, in no obvious distress. He is alert, pleasant. VITAL SIGNS: Last recorded temp 97.6, pulse 95, respirations 20, blood pressure is 132/76. HEENT: Appeared to be benign. Cranial nerves are grossly intact. Facies are symmetric. CHEST: He has a midline sternal incision with negative pressure dressing in place. EXTREMITIES AND NEUROLOGIC: Gentle range of motion of the upper extremities revealed functional range of motion. Strength is probably grade 4-/5. His lower [facility] [address] [place] [address] HISTORY AND PHYSICAL Name: LUIS ALBERTO ANNE Room #: 516-1 [facility] IN ..#: [id number] Admission: 08/13/20 Attend Phys: Paxton Leger MD Discharge: 08/21/20 Date of : 47 Report #: [id number] extremities, no focal calf swelling. Tone appeared to be intact. No distal lower extremity edema. Strength is probably a grade 4 - to 3+/5. Functionally, he has been min assist with basic transfers, is ambulating short distance with min assist. He has difficulty with the sternal precautions. ASSESSMENT: A 74-year-old male with the following problem list: 1. Cardiac debilitation. 2. Coronary artery disease, status post coronary artery bypass grafting x4 with endoscopic harvest left greater saphenous vein and left atrial appendage, clip applied. 3. Generalized weakness and debilitation. 4. Diabetes mellitus type 2, elevated hemoglobin A1c. 5. Exogenous obesity. 6. Hypertension. 7. Hyperlipidemia. 8. Hypothyroidism. 9. He does have the right transmetatarsal amputation, which I examined and appears well healed with no evidence of breakdown. PLAN: The patient will be involved in inpatient rehabilitation to work on maximizing his functional independence with mobility and ADLs. He will be involved with the interdisciplinary acute inpatient rehabilitation program. As far as risk of complication, see the above noted medical comorbidity list. Prognosis is reasonably good with estimated length of stay probably 7-10 days. Potential barriers would include his multiple medical comorbidities and decreased functional status. Goal is to maximize his functional independence, so he can hopefully return back to his prior living situation. Diagnosis is appropriate for acute in-hospital inpatient rehabilitation stay. He meets the medical necessity criteria and we will have the multiple bridal sales consultant physicians continue to follow. He does have the tolerance for therapies and has appropriate discharge goals back to the home setting. MD AMBER Snyder/FRANKIE <ELECTRONICALLY SIGNED> By: Paxton Leger MD 08/25/20 1235 [id number] Paxton Leger MD /nt
--- NOTE | 2020-08-25 12:35 | PLAN ---
[facility] [place] [address] REHAB UNIT PLAN OF CARE Name: LUIS ALBERTO ANNE Room #: 516-1 DIS IN M.R.#: [id number] Admission: 08/13/20 Attend Phys: Paxton Leger MD Discharge: 08/21/20 Date of : 47 Report #: [id number] THIS REPORT FOR: cc: Raghav Hickman MD, Troy A. MD Smithson, David G. MD ~ DOC #: [id number] Paxton Leger MD PROGRESS NOTE/OVERALL PLAN OF CARE SUBJECTIVE: The patient is seen back today in followup. He is in no distress. OBJECTIVE: VITAL SIGNS: Temperature 97.6, pulse 93, respirations 18, blood pressure 120/51. GENERAL: The patient was seen in his room. He was sitting in the bedside chair. Negative pressure dressing in place over his sternal incision. CHEST: Sounded clear. CARDIAC: Regular rate and rhythm. ABDOMEN: Bowel sounds positive, nontender. LOWER EXTREMITIES: No focal calf swelling. He has been working in therapies with transfers mod-assist, gait contact guard 60 feet with a front-wheeled walker. In occupational therapy, lower body dressing is min assist with upper body min assist. He has his most difficulty with [id number] transfers with his sternal precautions. He is being monitored closely regarding medical issues as well as cardiology followup. He does have the chronic atrial fibrillation. He is anticoagulated. Heart rate noted to be stable. ASSESSMENT: A 74-year-old white male with the following problem list: 1. Cardiac debilitation. 2. Coronary artery disease, status post coronary artery bypass grafting x 4. 3. Generalized weakness and debilitation. 4. Diabetes mellitus, type 2 with elevated hemoglobin A1c. 5. Exogenous obesity. 6. Hypertension. 7. Hyperlipidemia. 8. Hypothyroidism. 9. Right transmetatarsal amputation. PLAN: The overall plan of care is based on the pre-admission screen and information garnered from therapy assessments. 1. Estimated length of stay is probably 7-10 days. 2. Medical prognosis reasonably good. [facility] [address] [place] [address] REHAB UNIT PLAN OF CARE Name: DAYANALUIS ALBERTO Room #: 516-1 [facility] IN ..#: [id number] Admission: 08/13/20 Attend Phys: Paxton Leger MD Discharge: 08/21/20 Date of : 47 Report #: [id number] 3. Anticipated interventions includes the interdisciplinary acute inpatient rehabilitation program. 4. Anticipated functional outcomes would be for the patient to become modified independent with transfers, mobility and ADLs so that he can return back to the home setting. He needs to work more on his transfers as that is the biggest barrier at this point. 5. Discharge destination would be back home with his . 6. Expected therapy by discipline includes PT and OT 1 and 1-1/2 hours per day each, 5 days a week throughout the duration of the acute inpatient rehabilitation stay. ADDENDUM: The patient's prognosis for significant practical improvement within a reasonable period of time appears good. Given the patient's complex medical condition with multiple business analysis consultant involvement and close cardiology assistance as well as internal medicine, the risk of further medical complication is a concern and rehabilitation services could not be safely provided at the lower level of care such as a nursing home facility. MD AMBER Snyder/TARAN/KEILA <ELECTRONICALLY SIGNED> By: Paxton Leger MD 08/25/20 1235 1452 2247 Paxton Leger MD /nt
== END 2020-08-21 11:29 | disposition home or self-care (01) | DRG 948 ==
PROVIDERS: Nurse Practitioner; Nurse Practitioner Family; ADMIT Physical Medicine & Rehabilitation; ATTEND Physical Medicine & Rehabilitation
PROC: 5A09457 Assistance with Respiratory Ventilation, 24-96 Consecutive Hours, Continuous Positive Airway Pressure (ICD-10-PCS; principal; 2020-08-13)
DX: R53.81 Other malaise (principal); I48.20 Chronic atrial fibrillation, unspecified; I42.9 Cardiomyopathy, unspecified; N17.9 Acute kidney failure, unspecified; I25.10 Atherosclerotic heart disease of native coronary artery without angina pectoris; E66.09 Other obesity due to excess calories; E78.5 Hyperlipidemia, unspecified; E03.9 Hypothyroidism, unspecified; E78.00 Pure hypercholesterolemia, unspecified; G47.33 Obstructive sleep apnea (adult) (pediatric); D69.6 Thrombocytopenia, unspecified; E87.5 Hyperkalemia; E83.42 Hypomagnesemia; E11.51 Type 2 diabetes mellitus with diabetic peripheral angiopathy without gangrene; I12.9 Hypertensive chronic kidney disease with stage 1 through stage 4 chronic kidney disease, or unspecified chronic kidney disease; Z68.33 Body mass index [BMI] 33.0-33.9, adult; Z89.431 Acquired absence of right foot; Z95.1 Presence of aortocoronary bypass graft; I25.2 Old myocardial infarction; Z95.5 Presence of coronary angioplasty implant and graft
CPT/HCPCS: 10112

== ENCOUNTER → 2020-09-15 | Outpatient (CLI) | payer OTHER ==
[~2020-09-15] MED LIST changes: +ACETAMINOPHEN325 M1 PO; +CALTRATE-600 W1 EACH PO; +CARDIZEM CD 18180 M3 PO; +COZAAR 50 MG TA50 M1 PO; +DEMADEX20 MG PO; +HUMALOG100 UNIT/1 SUBQ; +HYDROCODON-ACE1 EAC7 PO; +IRBESARTAN150 MG PO; +IRBESARTAN300 MG PO; +METOPROLOL SUCC50 MG PO; +PEPCID20 MG PO
== END ==
LOC: SJCVC 11:13
PROVIDERS: ATTEND Internal Medicine Cardiovascular Disease
DX: R06.00 Dyspnea, unspecified (principal); E11.9 Type 2 diabetes mellitus without complications; I10 Essential (primary) hypertension; I25.10 Atherosclerotic heart disease of native coronary artery without angina pectoris; E78.00 Pure hypercholesterolemia, unspecified; I65.23 Occlusion and stenosis of bilateral carotid arteries; I25.2 Old myocardial infarction; Z79.899 Other long term (current) drug therapy; Z79.82 Long term (current) use of aspirin; Z79.84 Long term (current) use of oral hypoglycemic drugs; Z95.1 Presence of aortocoronary bypass graft

== ENCOUNTER → 2020-09-26 | Outpatient (CLI) | payer OTHER | LOC: RAD 11:03 | PROVIDERS: ATTEND Internal Medicine Cardiovascular Disease | DX: J98.4 Other disorders of lung (principal); Z95.1 Presence of aortocoronary bypass graft ==

== ENCOUNTER → 2020-09-26 | Outpatient (CLI) | payer OTHER ==
[~2020-09-26] MED LIST changes: +DIGOXIN250 MCG PO; +KLOR-CON M2020 MEQ PO; +METFORMIN HCL500 MG PO; +METOLAZONE 5 MG5 MG PO; +MUPIROCIN22 GM NASAL; +PEPCID AC10 MG PO; +SYNTHROID100 MC1 PO
== END ==
LOC: SJCVCIMAG
PROVIDERS: ATTEND Internal Medicine Cardiovascular Disease
DX: I07.1 Rheumatic tricuspid insufficiency (principal); R94.31 Abnormal electrocardiogram [ECG] [EKG]; E78.00 Pure hypercholesterolemia, unspecified; I77.89 Other specified disorders of arteries and arterioles; R06.02 Shortness of breath; R60.9 Edema, unspecified; E11.51 Type 2 diabetes mellitus with diabetic peripheral angiopathy without gangrene; I73.9 Peripheral vascular disease, unspecified; I25.10 Atherosclerotic heart disease of native coronary artery without angina pectoris; I48.91 Unspecified atrial fibrillation; I42.9 Cardiomyopathy, unspecified; D68.59 Other primary thrombophilia; I77.9 Disorder of arteries and arterioles, unspecified; I11.0 Hypertensive heart disease with heart failure; I50.23 Acute on chronic systolic (congestive) heart failure; E78.5 Hyperlipidemia, unspecified; I25.2 Old myocardial infarction; Z95.1 Presence of aortocoronary bypass graft; Z79.82 Long term (current) use of aspirin; Z79.899 Other long term (current) drug therapy; Z86.16 Personal history of COVID-19; Z86.73 Personal history of transient ischemic attack (TIA), and cerebral infarction without residual deficits; Z82.49 Family history of ischemic heart disease and other diseases of the circulatory system

== ENCOUNTER 2020-10-03 17:23 | Inpatient (IN) | payer OTHER ==
[~2020-10-03] VITALS: Ht 182.9 cm; Wt 104.3 kg
[~2020-10-03 17:23] MED LIST changes: -METFORMIN HCL500 MG PO; -METOLAZONE 5 MG5 MG PO
[2020-10-03 19:04] LABS: ABSOLUTE NEUTROPHILS 4.8 thou/uL (1.4-8.2); BASOPHILS 1.1 % (0.0-2.0); HEMATOCRIT 40.2 % (42.0-52.0); HEMOGLOBIN 13.5 gm/dL (14.0-18.0); MCH 28.6 pg (26.0-34.0); MCHC 33.6 g/dL (28.0-37.0); MCV 85.2 fL (80.0-100.0); MONOCYTES 9.8 % (1.0-8.0); PLATELET COUNT 124 thou/uL (150-400); POLYS 70.1 % (36.0-66.0); RBC 4.71 mil/uL (4.50-6.00); RDW 14.2 % (10.5-14.5); WBC 6.8 thou/uL (4.0-11.0)
[2020-10-03 19:05] LABS: CALCIUM 8.9 mg/dL (8.5-10.1); CREATININE 3.6 mg/dL (0.7-1.3); POTASSIUM 3.3 mmol/L (3.5-5.1)
[2020-10-03 19:11] LABS: ALBUMIN 3.6 g/dL (3.4-5.0); TOTAL PROTEIN 6.5 g/dL (6.4-8.2)
[2020-10-03 19:29] LABS: APTT 72.3 Seconds (24.5-32.8); INR 3.14; PROTIME 32.4 Seconds (10.5-12.1)
[2020-10-03 20:20] LABS: URINE BILIRUBIN NEGATIVE (Negative); URINE BLOOD NEGATIVE (Negative); URINE CLARITY CLEAR; URINE COLOR YELLOW; URINE GLUCOSE-RANDOM* NEGATIVE (Negative); URINE KETONES NEGATIVE (Negative); URINE LEUKOCYTES-REFLEX NEGATIVE (Negative); URINE NITRITE-REFLEX NEGATIVE (Negative); URINE PROTEIN (DIPSTICK) NEGATIVE (Negative); URINE SPECIFIC GRAVITY 1.015 (1.005-1.035); URINE UROBILINOGEN 0.2 E.U./dl (0.2-1.0)
[2020-10-03] MEDS ORDERED: METOLAZONE 5 MG5 MG PO (22:22)
[2020-10-03] MEDS ORDERED: METFORMIN HCL500 MG PO (22:23)
[2020-10-03 22:25] VITALS: BP 108/55
[2020-10-03 22:34] LABS: PROTIME 12.8 Seconds (10.5-12.1)
[2020-10-03 22:35] LABS: INR 1.18
[2020-10-03 22:38] VITALS: BP 97/56
[2020-10-03 22:45] VITALS: BP 96/52
[2020-10-03 23:00] VITALS: BP 113/54
[2020-10-03 23:30] VITALS: BP 104/55
[2020-10-04] VITALS (26 sets, daily range): BP systolic 99–124; BP diastolic 47–76
--- NOTE | 2020-10-04 03:27 | NUR ---
Patient here on unit from ER at 2245. Patient waake and alert. States he just doesn't feel good. Denies pain. Heart rate and rhythm stable afib in the 70's. BLood pressure lower but stable. Patient able to assist in admission. Patient understands why he is here. Adequate oxygenation on room air. Patient is using his own cpap at nighttime. Patient has been NPO since midnight. Am labs drawn. Awaiting results. Patient has been stable overnight in the ICU. See documentation on interventions for assessment details.
[2020-10-04 04:01] LABS: APTT 37.3 Seconds (24.5-32.8)
[2020-10-04 04:02] LABS: CALCIUM 8.4 mg/dL (8.5-10.1)
[2020-10-04 04:03] LABS: POTASSIUM 2.6 mmol/L (3.5-5.1)
[2020-10-04 04:47] LABS: HEMATOCRIT 38.9 % (42.0-52.0); HEMOGLOBIN 13.1 gm/dL (14.0-18.0); MCH 28.7 pg (26.0-34.0); MCHC 33.7 g/dL (28.0-37.0); MCV 85.3 fL (80.0-100.0); RBC 4.56 mil/uL (4.50-6.00); WBC 5.6 thou/uL (4.0-11.0)
[2020-10-04 05:21] LABS: INR 1.24; PROTIME 13.4 Seconds (10.5-12.1)
--- NOTE | 2020-10-04 10:00 | NUR ---
pt to Surgery acc by OR personnel.
--- NOTE | 2020-10-04 11:19 | 2DMMODE ---
[address] [address] 2 D/M-MODE ECHOCARDIOGRAM Name: LUIS ALBERTO ANNE Anat Room #: 250-P ADM IN M.R.#: [id number] Admission: 10/03/20 Attend Phys: Joi Fitzgerald Discharge: Date of : 47 Report #: [id number] THIS REPORT FOR: cc: Raghav Hickman MD, Troy A. MD Couchonnal, Luis F. MD ~ APPROVED REPORT Study performed: 10/04/2020 09:01:34 EXAM: Comprehensive 2D, Doppler, and color-flow Echocardiogram Patient Location: Echo lab Room #: 250 Status: on-call, stat BSA: 2.30 HR: 79 bpm BP: 105/60 mmHg Rhythm: Atrial Fibrillation Other Information Study Quality: Adequate Risk Factors: Cardiac Risk Factors: HTN Indications Pre-Op Dyspnea CAD Pericardial Effusion S/P CABG Hemorrhagic Pericarditis 2D Dimensions IVSd: 9.41 (7-11mm) LVDd: 34.77 mm PWd: 8.80 (7-11mm) Ascending Ao: 36.19 (22-36mm) LVDs: 28.13 (25-40mm) Aortic Root: 25.26 mm Volumes Left Atrial Volume (Systole) Single Plane 4CH: 93.[address] [address] 2 D/M-MODE ECHOCARDIOGRAM Name: LUIS ALBERTO ANNE Room #: 250-P ADM IN M.R.#: [id number] Admission: 10/03/20 Attend Phys: Joi Garcia Discharge: Date of : 47 Report #: [id number] Pulmonary Valve PV Peak Erich.: 0.38 m/s PV Peak Gr.: 0.57 mmHg Tricuspid Valve TR Peak Erich.: 2.13 m/s RAP Estimate: 18.00 mmHg TR Peak Gr.: 18.21 mmHg PA Pressure: 28.00 mmHg Left Ventricle The left ventricle is normal size. There is normal LV segmental wall motion. There is normal left ventricular wall thickness. Left ventricular systolic function is low normal. The left ventricular ejection fraction is within the normal range. LVEF is 45-50%. This study is not technically sufficient to allow evaluation of the LV diastolic function. Right Ventricle The right ventricle is normal size. The right ventricular systolic function is normal. Atria The left atrium size is normal. The right atrium size is normal. Aortic Valve The aortic valve is normal in structure. No aortic regurgitation is present. There is no aortic valvular stenosis. Mitral Valve The mitral valve is normal in structure. Mild mitral regurgitation. No evidence of mitral valve stenosis. Tricuspid Valve The tricuspid valve is normal in structure. Moderate tricuspid regurgitation. Pulmonary artery pressure is 28 mmHg. Pulmonic Valve The pulmonary valve is normal in structure. There is no pulmonic valvular regurgitation. Great Vessels The aortic root is normal in size. IVC is dilated and collapses <50% with inspiration. Pericardium Moderate pericardial effusion. Loculated in nature, mostly involving [facility] [address] [place] [address] 2 D/M-MODE ECHOCARDIOGRAM Name: LUIS ALBERTO ANNE Room #: 250-P ADM IN M.R.#: [id number] Admission: 10/03/20 Attend Phys: Joi Garcia Discharge: Date of : 47 Report #: [id number] the area around the right atrium and right ventricle with visual compression of RV. There appears to be finding of tamponade physiology with evidence of respiratory variation in outflow tract velocities. <Conclusion> The left ventricle is normal size. There is normal left ventricular wall thickness. LVEF is 45-50%. The right ventricle is normal size. The aortic valve is normal in structure. Moderate pericardial effusion. Loculated in nature, mostly involving the area around the right atrium and right ventricle with visual compression of RV. There appears to be finding of tamponade physiology with evidence of respiratory variation in outflow tract velocities. <ELECTRONICALLY SIGNED> By: Kwaku Amos MD 10/04/20 1118 1118 17 Kwaku Amos MD /INF
--- NOTE | 2020-10-04 12:19 | EKG ---
[address] [place] [employer] [address] ELECTROCARDIOGRAM REPORT Name: LUIS ALBERTO ANNE Room #: 250-P ADM IN M.R.#: [id number] Admission: 10/03/20 Attend Phys: Joi Fitzgerald Discharge: Date of : 47 Report #: [id number] [facility] ED Test Date: 2020-10-03 Test Time: 17:27:33 Pat Name: LUIS ALBERTO ANNE Department: Room: 250 Gender: M Code Clerk: JCHAIGALINA : 1945 Requested By: Noé Chase Order Number: [id number] MD: Kwaku Amos Measurements Intervals [place] Rate: 79 P: [place]: QRS: 80 QRSD: 81 T: 205 QT: 544 QTc: 624 Interpretive Statements Atrial fibrillation Low voltage, extremity and precordial leads Electronically Signed On 10-04-2020 12:19:41 CDT by Kwaku Amos [email or web address] <ELECTRONICALLY SIGNED> By: Kwaku Amos MD 10/04/20 1219 1727 1727 MD MAKENNA Mas
--- NOTE | 2020-10-04 15:30 | NUR ---
PTECIEVED FROM RR AWAKE AND ABLE TO FOLLOW COMMANDS. PLACED ON MONITOR SHOWS JUNTIONAL RHYTHM. AFEBRILE, RT AIRAM INTACT AND PIV'S INTACT. MCT INTACT TO ATRIUM W SUCTION. BLOODY DRAINAGE NOTED.VSS. PT DENIES ANY DISCOMFORT AT PRESENT. SINGH PATENT DRAINING CLEAR YELLOW URINE. WILL CONT TO MONITOR.
[2020-10-04 16:50] LABS: HEMATOCRIT 40.2 % (42.0-52.0); HEMOGLOBIN 13.5 gm/dL (14.0-18.0)
--- NOTE | 2020-10-04 17:00 | NUR ---
DR MICHEL HERE TO SEE CHANTELL HAS SPOKEN TO THE ABOUT THE SURGERY.
[2020-10-05] VITALS (23 sets, daily range): BP systolic 99–131; BP diastolic 53–77
[2020-10-05 05:41] LABS: HEMATOCRIT 39.4 % (42.0-52.0); MCH 28.3 pg (26.0-34.0); MCHC 32.9 g/dL (28.0-37.0); MCV 86.1 fL (80.0-100.0); RBC 4.57 mil/uL (4.50-6.00); RDW 14.1 % (10.5-14.5); WBC 7.4 thou/uL (4.0-11.0)
[2020-10-05 05:52] LABS: ALBUMIN 2.9 g/dL (3.4-5.0); CALCIUM 8.5 mg/dL (8.5-10.1); CREATININE 2.1 mg/dL (0.7-1.3); PHOSPHORUS 4.3 mg/dL (2.6-4.7); POTASSIUM 3.9 mmol/L (3.5-5.1)
--- NOTE | 2020-10-05 06:00 | NUR ---
VSS REMAINS IN AFIB LUNGS DIMINISHED. EXCELLENT COUGH 300 CC CHEST TUBE DRG AND 1400 CC UO TONIGHT. SLEPT OFF AND ON TONIGHT. A VERY DELIGHTFUL GENTLEMAN. PROGRESSING TOWARD GOALS
[2020-10-05 17:26] LABS: HEMATOCRIT 38.5 % (42.0-52.0); HEMOGLOBIN 12.9 gm/dL (14.0-18.0)
--- NOTE | 2020-10-05 19:54 | NUR ---
PATIENT IS PROGRESSING TOWARDS OUTCOME GOALS. IN AFIB. UP TO THE CHAIR THIS EVENING FOR DINNER. AT BEDSIDE AND UPDATED ON THE PATIENT'S STATUS AND THE POC. QUESTIONS ANSWERED AND REASSURANCE GIVEN.
[2020-10-06] VITALS (14 sets, daily range): BP systolic 96–136; BP diastolic 39–70
--- NOTE | 2020-10-06 06:00 | NUR ---
VSS REMAINS IN AFIB CONTROLLED. EXCELLENT COUGH 100 CC FROM CHEST TUBE VOIDED 1300 CC URINE. SALINE LOCK DENIES PAIN NOR DISCOMFORT. PROGRESSING TOWARD GOALS. A VERY DELIGHTFUL GENTLEMAN
--- NOTE | 2020-10-06 11:05 | NUR ---
PATIENT TRANSFERRED TO 211 WITH BELONGINGS, CHEST TUBE TO SUCTION.
[2020-10-06 13:00] LABS: ALBUMIN 3.2 g/dL (3.4-5.0); CALCIUM 9.2 mg/dL (8.5-10.1); CREATININE 1.7 mg/dL (0.7-1.3); PHOSPHORUS 2.7 mg/dL (2.6-4.7)
--- NOTE | 2020-10-06 20:25 | NUR ---
ADMITTED THIS PATIENT FROM THE ICU AT 1100AM, ON ROOM AIR BREATHING SPONTANEOUSLY.WITH 1 CEHST TUBE ON SUCTION COVERED WITH DRESSING C/D/I.NOT IN PAIN OR DISTRESS.ALL NEEDS ATTENDED.
[2020-10-07 00:10] VITALS: BP 133/79
--- NOTE | 2020-10-07 03:56 | NUR ---
PT IS ALELRT AND OREINTED X4. LUNGS ARE CLEAR TO DIMMINISHED. PT HAD A STERNUM DRESSING DRY AND INTACT WITH CHEST TUBE TO SUCTION -20. WEARS CPAP AT NIGHT AT BEDTIME. DENIES ANY COMPLAINTS OF PAIN NOTED. GETS UP WITH ASSSISTANCE TO BATHROOM AND SITING IN THE CHAIR THIS EVENING. WILL CONTINUE TO MONITOR AND ASSESS PER NURSING. CALL LIGHT RONEL REACH
[2020-10-07 04:00] VITALS: BP 113/68
[2020-10-07 07:50] VITALS: BP 114/62
--- NOTE | 2020-10-07 09:14 | HC ---
[facility] [place] [address] CONSULTATION Name: LUIS ALBERTO ANNE Room #: 211-P [facility] IN M.R.#: [id number] Admission: 10/03/20 Attend Phys: Jreemy Delgado MD Discharge: Date of : 47 Report #: [id number] THIS REPORT FOR: cc: Raghav Hickman MD, Troy A. MD Al-Nash,Marilee Mercado MD ~ REASON FOR THE CONSULTATION: Acute kidney injury. REASON FOR THE PRESENTATION: Fatigue and dyspnea on exertion. HISTORY OF PRESENT ILLNESS: A 74-year-old who had his bypass surgery in 07/2020. The patient is known to have coronary artery disease, hypertension, hyperlipidemia, diabetes mellitus, CKD with a baseline creatinine of around 1.5. The patient was found to have what seems to be multiloculated pericardial effusion. He was admitted to further evaluate his symptoms. Creatinine on arrival was significantly elevated at 3.6. He has significant hypokalemia, mandating a Nephrology consultation. PAST MEDICAL HISTORY: 1. Coronary artery disease, post CABG. 2. Diabetes mellitus. 3. Hypertension. 4. Hyperlipidemia. 5. Status post CABG. 6. Chronic kidney disease. 7. Hypothyroidism. 8. Left toe amputation. 9. Right carotid endarterectomy. SOCIAL HISTORY: No drug or alcohol abuse. FAMILY HISTORY: Hypertension. ALLERGIES: None. MEDICATIONS: 1. Flomax. 2. Torsemide. 3. Diltiazem. 4. Irbesartan. 5. Glipizide. 6. Levothyroxine. 7. Jardiance. REVIEW OF SYSTEMS: [facility] [address] [place] [address] CONSULTATION Name: LUIS ALBERTO ANNE Room #: 211-P ADM IN M.R.#: [id number] Admission: 10/03/20 Attend Phys: Jeremy Delgado MD Discharge: Date of : 46 Report #: [id number] GENERAL: Significant for weakness. CARDIOVASCULAR: No chest pain or palpitation. PULMONARY: Significant for dyspnea on exertion. GASTROINTESTINAL: Decreased appetite. GENITOURINARY: No frequency, but decreased urine output. NEUROLOGICAL: No headache, but significant weakness. PHYSICAL EXAMINATION: GENERAL: He is alert, awake, oriented. VITAL SIGNS: Blood pressure is 102/53, pulse rate is 75. HEAD AND NECK: No jugular venous distention, no bruit, no thyromegaly. CHEST: Decreased air entry bilaterally. CARDIOVASCULAR: Distant S1 and S2. ABDOMEN: Soft, nontender. LOWER EXTREMITIES: No edema. LABORATORY VALUES: White blood cell count is 5.6, hemoglobin is 13.1, hematocrit is 38.9, platelet is 106. Sodium is 130, potassium is 2.6, BUN is 72, creatinine is 3. ASSESSMENT, IMPRESSION, PLAN: 1. Acute kidney injury. 2. Chronic kidney disease with a baseline creatinine of around 1.5. 3. Status post CABG with pericardial effusion. 4. Start investigation for the patient given his history of obstruction in the past. Obtain an ultrasound of the kidneys. 5. Pericardial effusion to be addressed by the cardiothoracic surgeon. 6. Avoid any blood pressure medication at this point. 7. Continue IV fluid. 8. Replace potassium. 9. We will continue to follow. <ELECTRONICALLY SIGNED> By: Marilee Ward MD 10/07/20 0914 0537 0627 Marilee Ward MD /nt
[2020-10-07 10:52] VITALS: BP 96/58
--- NOTE | 2020-10-07 11:12 | NUR ---
INITIAL ASSESSMENT: Received consult. SW reviewed chart and spoke with nursing and hospitalist. Pt was transferred to CCU from ICU yesterday and is progressing towards goals for discharge. Discharge home is anticipated for tomorrow. Pt was admitted from home due to pericardial effusion. Pt has chest tube in place. Pt with recent CABG. Pt with hx of CKD and DM. Pt was on 5N for acute rehab and discharged home on 08/21 with orders for outpatient cardiac rehab. SW met with pt at bedside. Introduced role of SW. Pt is alert/orientated x 4. Pt reports he lives at home with his . Prior to admission, pt was independent with ADLs. Pt does have a walker that he has been using recently due to weakness. Pt and live in their home. No steps to navigate. Pt has used [facility] in the past and [facility] for home IV infusion. Pt's PCP is Dr. Raghav Hickman. Plan is for pt to discharge home. Pt is agreeable with HH services if needed. Options discussed for HH providers. No preference voiced. [facility] notified [facility] liaison of possible need for HH at time of discharge. [facility] is following to assist as needed with discharge planning.
[2020-10-07 11:38] LABS: HEMATOCRIT 39.5 % (42.0-52.0)
[2020-10-07 12:06] LABS: CALCIUM 8.6 mg/dL (8.5-10.1); CREATININE 1.3 mg/dL (0.7-1.3); POTASSIUM 3.9 mmol/L (3.5-5.1)
[2020-10-07 16:25] VITALS: BP 106/63
[2020-10-07 19:09] VITALS: BP 119/66
--- NOTE | 2020-10-08 03:08 | NUR ---
ASSUMED PT CARE AT 1900, A&OX4, AFIB ON TELE HR IN THE 90S, DENIES PAIN OR SOB, CT IN PLACE DRAINING SANGUNOUS DRAINAGE, CT TO SUCTION AT -20, ASSESSMENTS CHARTED, MEDS PER MAR, NO NEEDS AT THIS TIME, WILL CONTINUE TO MONITOR AND FOLLOW POC
[2020-10-08 05:35] VITALS: BP 118/84
[2020-10-08 07:19] VITALS: BP 119/72
[2020-10-08 11:27] VITALS: BP 132/55
[2020-10-08 14:57] VITALS: BP 103/47
[2020-10-08 15:01] VITALS: BP 95/60
[2020-10-08 20:59] VITALS: BP 121/76
[2020-10-09 03:45] LABS: HEMATOCRIT 38.1 % (42.0-52.0); HEMOGLOBIN 12.8 gm/dL (14.0-18.0); MCH 28.9 pg (26.0-34.0); MCHC 33.6 g/dL (28.0-37.0); MCV 86.2 fL (80.0-100.0); RBC 4.42 mil/uL (4.50-6.00); WBC 4.8 thou/uL (4.0-11.0)
[2020-10-09 04:08] LABS: CALCIUM 8.3 mg/dL (8.5-10.1); CREATININE 1.2 mg/dL (0.7-1.3); POTASSIUM 3.5 mmol/L (3.5-5.1)
[2020-10-09 05:41] VITALS: BP 121/73
[2020-10-09 07:25] VITALS: BP 102/65
--- NOTE | 2020-10-09 07:46 | NUR ---
SLEPT MOST OF SHIFT WITH HOME CPAP ON. ASSISTED UP TO BATHROOM WITH STANDBY ASSIST AND WALKER. WORKING ON GOALS AND PLAN OF CARE FOR NOC. CONTINUE TO ASSES. 15CC OUT OF CHEST TUBE THIS SHIFT. DENIES COMPLAINTS OF SHORTNESS OF AIR.
[2020-10-09 11:32] VITALS: BP 111/71
[2020-10-09 15:29] VITALS: BP 127/83
--- NOTE | 2020-10-09 18:39 | NUR ---
RECEIVED THE PATIENT CONSCIOUS AND ORIENTED.ON ROOM AIR BREATHING SPONTANEOUSLY.WITH CHEST TUBE INTACT.NOT IN PAIN OR DISTRESS.PATIENT AMBULATED WITH THE PHYSICAL THERAPIST.ALL NEEDS ATTENDED.
[2020-10-09 20:15] VITALS: BP 120/69
[2020-10-10 03:15] LABS: CALCIUM 8.2 mg/dL (8.5-10.1); CREATININE 1.2 mg/dL (0.7-1.3); POTASSIUM 3.4 mmol/L (3.5-5.1)
[2020-10-10 04:45] VITALS: BP 103/67
--- NOTE | 2020-10-10 06:08 | NUR ---
SLEPT MOST OF NOC WITH CPAP ON. DENIES COMPLAINTS OF PAIN OR SHORTNESS OF AIR. CHEST TUBE PATENT TO SUCTION PER ORDERS. WORKING ON GOALS AND PLAN OF CARE FOR NOC. CONTINUE TO ASSES.
[2020-10-10 07:40] VITALS: BP 116/78
[2020-10-10 11:10] VITALS: BP 108/64
[2020-10-10] MEDS ORDERED: SYNTHROID100 MC1 PO (14:26)
[2020-10-10] MEDS ORDERED: METOPROLOL SUCC50 MG PO (14:26)
[2020-10-10] MEDS ORDERED: CALTRATE-600 W1 EACH PO (14:26)
[2020-10-10] MEDS ORDERED: DIGOXIN250 MCG PO (14:26)
[2020-10-10] MEDS ORDERED: HYDROCODON-ACE1 EAC7 PO (14:26)
[2020-10-10] MEDS ORDERED: PEPCID AC10 MG PO (14:26)
[2020-10-10] MEDS ORDERED: MUPIROCIN22 GM NASAL (14:26)
[2020-10-10] MEDS ORDERED: KLOR-CON M2020 MEQ PO (14:27)
[2020-10-10 15:09] VITALS: BP 108/64
--- NOTE | 2020-10-10 15:32 | NUR ---
ASSESSMENT CHARTED. MEDS PER APR Melanie RESTREPO DIET AND FLUIDS. NO CO'S OF PAIN OR NAUSEA. UP IN ROOM WITH STBY ASSIST. CHEST TUBE REMOVED BY THORACIC SURGERY - PT UP AD TAD IN ROOM THEN. STEADY ON FEET. PT HOME THIS AFTERNOON. INSTRUCTION RE HOME MEDS/ CARE AND FOLLOW UP GIVEN TO PATIENT. NO CO'S AT TIME OF D/C . LEFT UNIT VIA WC HOME WITH SPOUSE VIA PVT VEHICLE.
--- NOTE | 2020-10-14 11:52 | HC ---
[facility] [place] [address] CONSULTATION Name: LUIS ALBERTO ANNE Room #: 211-P [facility] IN M.R.#: [id number] Admission: 10/03/20 Attend Phys: Jeremy Delgado MD Discharge: 10/10/20 Date of : 46 Report #: [id number] THIS REPORT FOR: cc: Raghav Hickman MD, Troy A. MD Forman, John M. MD ~ DATE OF SERVICE: 10/03/2020 REASON FOR CONSULTATION: We were asked to see the patient by Dr. Navas. HISTORY OF PRESENT ILLNESS: The patient is a 74-year-old known to me from coronary bypass surgery done in July 2020. The patient also had a left atrial clip applied for atrial fibrillation. The patient was discharged on Xarelto. The patient states that over the last week or two, he has been quite weak and worn. The patient was seen by Dr. Navas in the office last week. An echo was done that showed a small pericardial effusion with no tamponade physiology. Today, a CT scan was done that showed a loculated pericardial effusion. In any event, I suggested the patient be admitted for concern about a hemorrhagic pericarditis. PAST MEDICAL HISTORY: Significant for diabetes mellitus type 2, peripheral vascular disease, carotid stenosis, hyperlipidemia, hypothyroidism, atrial fibrillation as mentioned. MEDICATIONS: Include Flomax, famotidine, calcium, torsemide, metoprolol, diltiazem, irbesartan and Xarelto. Pradaxa was stopped. The patient has also been on aspirin. REVIEW OF SYSTEMS: GENERAL: No fever or chills. The patient does report general malaise and weakness. EYES: No vision change. HEENT: No headache, sinus problems. CARDIAC: Denies angina or palpitations. GASTROINTESTINAL: Denies nausea, vomiting. GENITOURINARY: Denies urgency, frequency. MUSCULOSKELETAL: No bone or joint pain. NEUROLOGIC: No new motor or sensory dysfunction. SKIN: No rash or infection. HEMATOLOGIC: Easy bruisability noted. PHYSICAL EXAMINATION: The patient is lying in bed in the Emergency Department. VITAL SIGNS: Blood pressure 117/52, respiratory rate 13, heart rate 80, pulse ox 97. HEENT: No scleral icterus, left eye has a bruise from a fall, periorbital [facility] [address] [place] [address] CONSULTATION Name: LUIS ALBERTO ANNE Room #: [address] [place] [address].#: [id number] Admission: 10/03/20 Attend Phys: Jeremy Delgado MD Discharge: 10/10/20 Date of : 47 Report #: [id number] hematoma. NECK: No bruits audible. No mass. CHEST: Clear to auscultation. HEART: Rhythm atrial fibrillation. Heart tones are distant. ABDOMEN: Soft, somewhat protuberant. No pain. EXTREMITIES: Edema, no cyanosis. PSYCHIATRIC: Shows insight into problem and is oriented and appropriate and pleasant despite feeling ill. I tried to detect pulsus paradoxus, but ambient noise made this impossible. ASSESSMENT AND PLAN: The patient has a loculated pericardial effusion. The patient was on Xarelto and clotting studies are elevated. I have requested the ER, initiate Xarelto reversal and this was done. We will recheck clotting studies in the morning in the hopes that they are reasonable and if that is the case, we will try to drain the loculated pericardial effusion through a subxiphoid incision. The risks and details of this were discussed with the patient and his . Options and alternatives were reviewed. At this point, I think we need to rule out compromise related to the pericardial effusion, on anticoagulation and I believe the most effective way to do so is drain the fluid. There is some uncertainty about this of course and we will try to make this as safe as possible. With respect to reversing clotting deficiencies. The patient understands all of this and agrees with this approach. Thank you for the consult. <ELECTRONICALLY SIGNED> By: Randell Quinones MD 10/14/20 1152 2105 0133 Randell Quinones MD /nt
--- NOTE | 2020-10-14 11:52 | O ---
[facility] [place] [address] OPERATIVE REPORT Name: LUIS ALBERTO ANNE Room #: 211-P [facility] IN M.R.#: [id number] Admission: 10/03/20 Attend Phys: Jeremy Delgado MD Discharge: 10/10/20 Date of : 47 Report #: [id number] THIS REPORT FOR: cc: Raghav Hickman MD, Troy A. MD Forman, John M. MD ~ DATE OF SERVICE: 10/04/2020 PREOPERATIVE DIAGNOSIS: Pericardial effusion with tamponade physiology. POSTOPERATIVE DIAGNOSIS: Pericardial effusion with tamponade physiology. OPERATION: Subxiphoid pericardiotomy (reoperative). SURGEON: Randell Quinones MD LOCK MASTER: ILIANA Woods. ANESTHESIA: General. INDICATIONS: The patient is a 74-year-old who had coronary artery bypass surgery approximately 2 months ago. The patient had a satisfactory hospital convalescence and had done well in the early postoperative period. I was alerted, however, by Dr. Navas that the patient had over the last week or so become fatigued with fluid retention and some shortness of breath. Pericardial effusion was seen on an echo done approximately [address] scan done on 10/03/2020 showed a large pericardial effusion. The patient had no evidence of infection with normal white count and being afebrile. The patient has a history of atrial fibrillation and an atrial clip was placed at surgery and the patient was anticoagulated appropriately for chronic atrial fibrillation. My suspicion was that this was a hemorrhagic pericarditis leading to accumulation of fluid around the heart. Pericardial echo done on the morning of 10/04/2020 showed tamponade physiology. FINDINGS AND TECHNIQUE: After general anesthesia was established, exposure was obtained through subxiphoid incision. This was largely through scar from the previous operation and as such at the time that this was done with respect to the original incision, there were no clearcut tissue planes, but rather just scar in early stages of organization. As such, the dissection was difficult at the intersection of abdomen, peritoneal cavity, diaphragm, sternum, pericardial cavity and heart. Nevertheless, we were able to identify a fluid collection along the right side of the heart. This was in part helped by a transesophageal echo performed by anesthesia. Once we identified this fluid collection, it was entered and drained, [facility] [address] [place] [address] OPERATIVE REPORT Name: LUIS ALBERTO ANNE Room #: 211-P DIS IN .R.#: [id number] Admission: 10/03/20 Attend Phys: Jeremy Delgaod MD Discharge: 10/10/20 Date of : 47 Report #: [id number] approximately 900 mL of fluid were obtained with an immediate improvement in the patient's hemodynamics. Once the fluid was drained, an aperture in this cavity was made and a 24 Rivera drain was placed and brought out through a separate stab wound. Hemostasis was ascertained in all areas. The transesophageal echo showed that all of the fluid around the heart had now been drained and hemodynamics were satisfactory. Hemostasis was ascertained. The wound was closed in layers with interrupted Vicryl for the fascia and Vicryl and Monocryl for the subcutaneous and subcuticular layers. The patient was taken to the recovery area in good condition having tolerated the procedure well. All counts were reported as correct. <ELECTRONICALLY SIGNED> By: Randell Quinones MD 10/14/20 1152 0709 0959 Randell Quinones MD /nt
== END 2020-10-10 15:31 | disposition home or self-care (01) | DRG 314 ==
LOC: ER 17:23 → EROBS 20:29 → ICU 20:29 → 2N 10-06 11:29
PROVIDERS: Hospitalist; Nurse Practitioner; Nurse Practitioner Adult Health; Nurse Practitioner Family; Physician Assistant; Surgery Vascular Surgery; ADMIT Hospitalist; ATTEND Hospitalist
PROC: 5A09357 Assistance with Respiratory Ventilation, Less than 24 Consecutive Hours, Continuous Positive Airway Pressure (ICD-10-PCS; principal; 2020-10-03)
PROC: 0W9D30Z Drainage of Pericardial Cavity with Drainage Device, Percutaneous Approach (ICD-10-PCS; 2020-10-04)
PROC: 5A09357 Assistance with Respiratory Ventilation, Less than 24 Consecutive Hours, Continuous Positive Airway Pressure (ICD-10-PCS; 2020-10-06)
DX: I31.3 Pericardial effusion (noninflammatory) (principal); I50.21 Acute systolic (congestive) heart failure; J96.00 Acute respiratory failure, unspecified whether with hypoxia or hypercapnia; N17.0 Acute kidney failure with tubular necrosis; I13.0 Hypertensive heart and chronic kidney disease with heart failure and stage 1 through stage 4 chronic kidney disease, or unspecified chronic kidney disease; N17.9 Acute kidney failure, unspecified; E87.1 Hypo-osmolality and hyponatremia; I42.9 Cardiomyopathy, unspecified; I48.21 Permanent atrial fibrillation; E44.0 Moderate protein-calorie malnutrition; I31.4 Cardiac tamponade; K59.00 Constipation, unspecified; N18.9 Chronic kidney disease, unspecified; I25.10 Atherosclerotic heart disease of native coronary artery without angina pectoris; E03.9 Hypothyroidism, unspecified; E11.51 Type 2 diabetes mellitus with diabetic peripheral angiopathy without gangrene; E78.5 Hyperlipidemia, unspecified; E78.00 Pure hypercholesterolemia, unspecified; I65.29 Occlusion and stenosis of unspecified carotid artery; E11.22 Type 2 diabetes mellitus with diabetic chronic kidney disease; D69.6 Thrombocytopenia, unspecified; E87.6 Hypokalemia; E87.8 Other disorders of electrolyte and fluid balance, not elsewhere classified; N40.0 Benign prostatic hyperplasia without lower urinary tract symptoms; Z68.31 Body mass index [BMI] 31.0-31.9, adult; Z79.01 Long term (current) use of anticoagulants; Z89.422 Acquired absence of other left toe(s); Z95.1 Presence of aortocoronary bypass graft; Z82.49 Family history of ischemic heart disease and other diseases of the circulatory system
CPT/HCPCS: 10078; 10081; 48889; 50010; 50101; 50386; 50455; 50662; 51467; 53358; 54118; 56524; 56525; 56526; 56527; 56528; 56668; 56760; 57092; 57093; 58585; 62110; 62900; 65020; 70005

== ENCOUNTER → 2020-10-03 | Outpatient (CLI) | payer OTHER ==
[~2020-10-03] MED LIST changes: -DIGOXIN250 MCG PO; -KLOR-CON M2020 MEQ PO; -MUPIROCIN22 GM NASAL; -PEPCID AC10 MG PO; -SYNTHROID100 MC1 PO
== END ==
LOC: CAT 11:06
PROVIDERS: ATTEND Internal Medicine Cardiovascular Disease
DX: J90 Pleural effusion, not elsewhere classified (principal); I25.10 Atherosclerotic heart disease of native coronary artery without angina pectoris; I70.0 Atherosclerosis of aorta; M47.815 Spondylosis without myelopathy or radiculopathy, thoracolumbar region; R18.8 Other ascites

== ENCOUNTER → 2020-10-24 | Outpatient (CLI) | payer OTHER ==
[~2020-10-24] MED LIST changes: +DIGOXIN250 MCG PO; +KLOR-CON M2020 MEQ PO; +METFORMIN HCL500 MG PO; +METOLAZONE 5 MG5 MG PO; +MUPIROCIN22 GM NASAL; +PEPCID AC10 MG PO; +SYNTHROID100 MC1 PO
== END ==
LOC: SJCVCIMAG 09:19
PROVIDERS: ATTEND Internal Medicine Cardiovascular Disease
DX: R94.31 Abnormal electrocardiogram [ECG] [EKG] (principal); I48.91 Unspecified atrial fibrillation; I08.2 Rheumatic disorders of both aortic and tricuspid valves; I25.10 Atherosclerotic heart disease of native coronary artery without angina pectoris; R60.0 Localized edema; E11.51 Type 2 diabetes mellitus with diabetic peripheral angiopathy without gangrene; I42.9 Cardiomyopathy, unspecified; I11.0 Hypertensive heart disease with heart failure; I50.23 Acute on chronic systolic (congestive) heart failure; I73.9 Peripheral vascular disease, unspecified; Z86.16 Personal history of COVID-19; Z95.1 Presence of aortocoronary bypass graft; Z79.84 Long term (current) use of oral hypoglycemic drugs; Z79.82 Long term (current) use of aspirin; Z79.899 Other long term (current) drug therapy

== ENCOUNTER → 2020-11-26 | Outpatient (CLI) | payer OTHER | LOC: SJCVC 10:24 | PROVIDERS: ATTEND Internal Medicine Cardiovascular Disease | DX: I48.91 Unspecified atrial fibrillation (principal); I25.10 Atherosclerotic heart disease of native coronary artery without angina pectoris; E11.9 Type 2 diabetes mellitus without complications; I10 Essential (primary) hypertension; E78.5 Hyperlipidemia, unspecified; Z95.1 Presence of aortocoronary bypass graft; Z79.82 Long term (current) use of aspirin; Z79.84 Long term (current) use of oral hypoglycemic drugs; Z79.899 Other long term (current) drug therapy ==

== ENCOUNTER → 2021-02-03 | Outpatient (CLI) | payer OTHER | LOC: SJCVC 10:38 | PROVIDERS: ATTEND Internal Medicine Cardiovascular Disease | DX: R94.31 Abnormal electrocardiogram [ECG] [EKG] (principal); I25.810 Atherosclerosis of coronary artery bypass graft(s) without angina pectoris; I48.20 Chronic atrial fibrillation, unspecified; I31.3 Pericardial effusion (noninflammatory); I42.9 Cardiomyopathy, unspecified; I10 Essential (primary) hypertension; E78.00 Pure hypercholesterolemia, unspecified; I73.9 Peripheral vascular disease, unspecified; I77.9 Disorder of arteries and arterioles, unspecified; E11.9 Type 2 diabetes mellitus without complications; I65.23 Occlusion and stenosis of bilateral carotid arteries; E78.5 Hyperlipidemia, unspecified; Z95.1 Presence of aortocoronary bypass graft; Z82.49 Family history of ischemic heart disease and other diseases of the circulatory system; Z79.82 Long term (current) use of aspirin; Z79.84 Long term (current) use of oral hypoglycemic drugs; Z79.899 Other long term (current) drug therapy ==

== ENCOUNTER → 2021-02-25 | Outpatient (CLI) | payer OTHER | LOC: SJCVCIMAG 08:28 | PROVIDERS: ATTEND Internal Medicine Cardiovascular Disease | DX: R94.31 Abnormal electrocardiogram [ECG] [EKG] (principal); I48.91 Unspecified atrial fibrillation; I25.810 Atherosclerosis of coronary artery bypass graft(s) without angina pectoris; I48.20 Chronic atrial fibrillation, unspecified; I73.9 Peripheral vascular disease, unspecified; I50.23 Acute on chronic systolic (congestive) heart failure; I31.3 Pericardial effusion (noninflammatory); I77.9 Disorder of arteries and arterioles, unspecified; E11.9 Type 2 diabetes mellitus without complications; I42.9 Cardiomyopathy, unspecified; R06.00 Dyspnea, unspecified; I11.0 Hypertensive heart disease with heart failure; E78.5 Hyperlipidemia, unspecified; I25.10 Atherosclerotic heart disease of native coronary artery without angina pectoris; Z86.73 Personal history of transient ischemic attack (TIA), and cerebral infarction without residual deficits; Z79.82 Long term (current) use of aspirin; Z79.899 Other long term (current) drug therapy; Z86.16 Personal history of COVID-19; Z95.1 Presence of aortocoronary bypass graft ==